=== PATIENT | male | born 1945 | race Caucasian/White ===

== ENCOUNTER 2020-01-09 11:16 | Outpatient (REF) | payer MEDICARE, OTHER, SELFPAY ==
--- NOTE | 2020-01-10 08:45 | MHC.AU.P13 ---
Adult Audiological Evaluation Date of Visit: 01/09/20 Reason for Appointment: Audiologic re-evaluation due to change in hearing. Chris reports he is experiencing sound distortion and ear discomfort/pressure, particularly when increasing the volume of the hearing aids, left ear greater than right. Previous Hearing Test Results: 05/18/2018 at [facility] Moderate to severe sensorineural hearing loss bilaterally with 88% speech understanding for the right ear and 76% for the left ear at a comfortable listening level of 80 dB HL Medical History: Medical History: Since last hearing test has had skin cancer lesions surgically removed with no other treatment required. Chris has a history of occasional balance problems and he reports no change in this symptom and denies any problem with headaches since experiencing the more recent ear discomfort and change in hearing. Hearing Instrument History- Right Ear: Resource Recovery Engineer: Phonak Model: [employer] Q90-P Serial Number: [id number] Battery Size: 13 Hearing Instrument History- Left Ear: Resource Recovery Engineer: Vartopiaak Model: [employer] Q90-P Serial Number: [id number] Battery Size: 13 Otoscopy: Right Ear: Non-occluding cerumen Left Ear: Non-occluding cerumen Tympanometry: Right Ear: Normal Middle Ear System (Type A) Left Ear: Normal Middle Ear System (Type A) Hearing Evaluation: Transducer(s) Used: Insert Earphones Bone Conduction Method: Conventional Audiometry Stimuli Used: Pure Tones Right Ear: Description of Hearing: Moderate to moderately-severe sensorineural hearing loss through all frequencies Left Ear: Description of Hearing: Moderate to moderately-severe sensorineural hearing loss through all frequencies Speech Recognition Threshold (SRT): Method Used: Monitored Live Voice Stimuli Used: Spondee Words Right Ear: 50 Left Ear: 50 Word Discrimination: Method: Recorded Lists Word Lists Used: NU-6 Right Ear: 80% at 75 dB HL Left Ear: 40% at 70 dB HL Chris was unable to tolerate any increase in presentation level above 70 dB HL Most Comfortable Level (MCL): Right Ear: 75 dB HL Left Ear: 70 dB HL Uncomfortable Loudness Level (UCL): Right Ear: Left Ear: 75 dB HL Comparison: Compared to most recent evaluation: Left speech discrimination has significantly decreased Hearing thresholds at 250-2000 Hz have decreased 10-15 dB with improved thresholds at 6000 and 8000 Hz for both ears. Recommendations: Recommendations: Audiological re-evaluation in one year. Referral to Ear, Nose, and Throat is recommended. Recommendations (Other): Due to the significant ear discomfort and decreased left ear speech discrimination, advise further work-up by an Perl Developer/Rental Agent. Hearing aids were re-programmed today to try to improve listening comfort. Diagnosis: Primary Diagnosis: H90.3 Bilateral Sensorineural Hearing Loss Secondary Diagnosis: N/A Services Performed: Services Performed: Comprehensive Audiological Evaluation (CPT 93786) Tympanometry (CPT 83489) Signature: Provider: Francisca Encarnacion, CCC-A
== END 2020-01-09 11:17 | disposition home or self-care (01) ==
LOC: HO.SH 11:16
PROVIDERS: Visit Provider Internal Medicine
DX: H90.3 Sensorineural hearing loss, bilateral (principal)
CPT/HCPCS: 92557; 92567

== ENCOUNTER 2020-01-30 13:12 | Outpatient (REF) | payer SELFPAY | END 2020-01-30 13:13 | disposition home or self-care (01) | LOC: HO.HAP 13:12 | PROVIDERS: PCP Internal Medicine; Referring Provider Internal Medicine; Visit Provider Internal Medicine | DX: Z13.89 Encounter for screening for other disorder (principal) | CPT/HCPCS: 92700 ==

== ENCOUNTER 2020-07-11 09:42 | Outpatient (REF) | payer SELFPAY ==
--- NOTE | 2020-07-11 11:50 | MHC.AU.HAS ---
Hearing Aid Evaluation Date of Visit: Joy Operator Helper Used: Not Applicable Historical Information: Description of Hearing: Bilateral moderate to moderately-severe sensorineural hearing loss Current personal amplification information, if applicable: Binaural Phonak Bolero Q 90-P with canal lock slim tips obtained from ENT Summary: Patient received medical clearance from Dr. Holloway and wants to pursue new hearing aids. Discussed ITC vs JESSICA due to difficulties cleaning the aids. Patient wants to try battery JESSICA with wax guards. Hearing Aid Prescription: Based on the individual?s shared listening needs, communication environments, dexterity, desire for connectivity, and personal preferences, the following prescription for amplification has been made: Right ear: Log Turner: Phonak Model: Audeo P 90 - 13T Battery Size: 13 Color: Silver Light Bridge Mechanic: #3 Medium Type of Mold: Phonak Integrated canal lock Left ear: Left ear prescription to be same as Right Hearing Aid above: Log Turner: Phonak Model: Audeo P 90 - 13T Battery Size: 13 Color: Silver Light Bridge Mechanic: #3 Medium Type of Mold: Phonak Integrated canal lock Accessories/Assistive Technology Recommended: Promo Partner [facility] Plan of Care: Patient wishes to purchase hearing aids as prescribed Action Taken/Action Needed: Earmold Impressions Taken Hearing Fitting to be scheduled when materials arrive Comments: Primary Diagnosis: H90.3 Bilateral Sensorineural Hearing Loss Secondary Diagnosis: Signature: Provider: Francisca Encarnacion, [facility]
== END 2020-07-11 09:43 | disposition home or self-care (01) ==
LOC: HO.HAP 09:42
PROVIDERS: Visit Provider Internal Medicine
DX: Z46.1 Encounter for fitting and adjustment of hearing aid (principal); H90.3 Sensorineural hearing loss, bilateral
CPT/HCPCS: 92591; V5275

== ENCOUNTER 2020-08-11 12:21 | Outpatient (REF) | payer MEDICARE, OTHER, SELFPAY | END 2020-08-11 12:22 | disposition home or self-care (01) | LOC: HO.HAP 12:21 | PROVIDERS: Visit Provider Internal Medicine | DX: H90.3 Sensorineural hearing loss, bilateral (principal); Z46.1 Encounter for fitting and adjustment of hearing aid | CPT/HCPCS: V5261 ==

== ENCOUNTER 2020-08-26 12:09 | Outpatient (REF) | payer SELFPAY | END 2020-08-26 12:10 | disposition home or self-care (01) | LOC: HO.HAP 12:09 | PROVIDERS: Visit Provider Internal Medicine | DX: Z13.89 Encounter for screening for other disorder (principal) ==

== ENCOUNTER 2021-11-16 11:39 | Day surgery (SDC) | payer MEDICARE, OTHER, SELFPAY ==
[2021-11-11 11:15] VITALS: BMI 30.9
--- NOTE | 2021-11-13 13:29 | HO.ANESPROP2 ---
Documented by User: Mildred Martinez NP 11/13/21 13:29 HPI - Anesthesia Eval Consult details Narrative: 75yo Mf for Upper Endoscopy and Colonoscopy [facility] Past Medical History Medical History BPH (benign prostatic hyperplasia) Depression IBS (irritable bowel syndrome) Interstitial lung disease Thrombocytopenia Surgical History Surgical History H/O colonoscopy History of ankle surgery History of prostate surgery Hx of appendectomy Hx of cholecystectomy Hx of hemorrhoidectomy Hx of hernia repair Hx of knee surgery Social History Social History (Updated 11/11/21 @ 11:04 by Kenzie Keene RN) Are you a primary childcare center administrator to a significant other at home: No Patient Tobacco Use Status: Former Tobacco user Quit Date: >10 yr ago Tobacco use type: Cigarette Use of substances other than those prescribed or required for medical reasons: No Have you been hit, kicked, punched, or otherwise hurt by someone within the past year? If so, by whom?: No Are you DNR?: No Advance Directives: No Advance Directives Information Provided: Yes (brochure mailed) Advance Directives on File: No Recently lost weight without trying: No Eating poorly because of decreased appetite: No Nutrition Risks: Surgical patient >75years Meds Allergies Allergy/AdvReac Type Severity Reaction Status Date / Time meperidine [From DEMEROL] Allergy Severe ANAPHYLAXIS Verified 11/16/21 11:56 nickel Allergy Unknown Unknown Verified 11/16/21 11:56 Home Medications Medication Instructions Recorded Confirmed Last Taken Type Bifidobacterium infantis 4 mg 4 mg PO DAILY 11/11/21 11/11/21 Unknown History capsule (Align) cyanocobalamin (vitamin B-12) 1,000 mcg PO DAILY 11/11/21 11/11/21 Unknown History 1,000 mcg tablet (Vitamin B-12) finasteride 5 mg tablet 5 mg PO DAILY 11/11/21 11/11/21 11/16/21 09:30 History fluoxetine 40 mg capsule 40 mg PO DAILY 11/11/21 11/11/21 11/16/21 09:30 History multivitamin 1 tab PO DAILY 11/11/21 11/11/21 Unknown History tadalafil 5 mg tablet 5 mg PO DAILY 11/11/21 11/11/21 Unknown History polyethylene glycol 3350 17 gram g 11/16/21 11/16/21 Unknown History oral powder packet (Miralax) Exam Exam Date and Time: November 13, 2021 1329 Height,Weight and Vital Signs: Height 6 ft 0.75 in Weight 105.687 kg Assessment and Plan Assessment Anesthesia Assessment: Chart Reviewed Documented by User: Braydon Bedoya MD 11/16/21 12:53 PMF Active Problems Active Problems: acid reflux Past Medical History Medical History BPH (benign prostatic hyperplasia) Depression IBS (irritable bowel syndrome) Interstitial lung disease Thrombocytopenia Family History Family history of problems with anesthesia: No Surgical History Surgical History H/O colonoscopy History of ankle surgery History of prostate surgery Hx of appendectomy Hx of cholecystectomy Hx of hemorrhoidectomy Hx of hernia repair Hx of knee surgery History of Problems with Anesthesia: No Social History Social History (Updated 11/11/21 @ 11:04 by Kenzie Keene RN) Are you a primary childcare center administrator to a significant other at home: No Patient Tobacco Use Status: Former Tobacco user Quit Date: >10 yr ago Tobacco use type: Cigarette Use of substances other than those prescribed or required for medical reasons: No Have you been hit, kicked, punched, or otherwise hurt by someone within the past year? If so, by whom?: No Are you DNR?: No Advance Directives: No Advance Directives Information Provided: Yes (brochure mailed) Advance Directives on File: No Recently lost weight without trying: No Eating poorly because of decreased appetite: No Nutrition Risks: Surgical patient >75years Meds Allergies Allergy/AdvReac Type Severity Reaction Status Date / Time meperidine [From DEMEROL] Allergy Severe ANAPHYLAXIS Verified 11/16/21 11:56 nickel Allergy Unknown Unknown Verified 11/16/21 11:56 Home Medications Medication Instructions Recorded Confirmed Last Taken Type Bifidobacterium infantis 4 mg 4 mg PO DAILY 11/11/21 11/11/21 Unknown History capsule (Align) cyanocobalamin (vitamin B-12) 1,000 mcg PO DAILY 11/11/21 11/11/21 Unknown History 1,000 mcg tablet (Vitamin B-12) finasteride 5 mg tablet 5 mg PO DAILY 11/11/21 11/11/21 11/16/21 09:30 History fluoxetine 40 mg capsule 40 mg PO DAILY 11/11/21 11/11/21 11/16/21 09:30 History multivitamin 1 tab PO DAILY 11/11/21 11/11/21 Unknown History tadalafil 5 mg tablet 5 mg PO DAILY 11/11/21 11/11/21 Unknown History polyethylene glycol 3350 17 gram g 11/16/21 11/16/21 Unknown History oral powder packet (Miralax) Exam Airway Mallampati Class: III TM Dist: >3cm Neck ROM: Full Heart: rrr Lungs: clear Assessment and Plan Final Anesthetic Review Family History of Problems with Anesthesia: No History of Problems with Anesthesia: No NPO: Yes ASA Class: II Final Preanesthetic Review: No Changes in Pt Med Stat, Meds/Allgs Chart Reviewed, Consent Obtained/Reviewed and Anes Risks/Benef Reviewed Patient Risk: Intermediate Procedure Risk: Low Anesthetic Plan Anesthetic Plan: MAC: Disposition: Standard PACU
[2021-11-16 12:12] VITALS: BP 157/72; PULSE 76; RESP 18; TEMP 37.1; O2SAT 96
[2021-11-16 13:59] VITALS: BP 130/57; PULSE 69; RESP 18; TEMP 36.8; O2SAT 97
--- NOTE | 2021-11-16 14:03 | P.BOP_ITS ---
Brief Operative Note Date of Service: 11/16/21 Pre-op diagnosis: GERD, Screening Post-op diagnosis: other (Hiatal hernia, Gastric polyps, Erosive duodenitis, Diverticulosis, Internal hemorrhoids) Procedure: EGD with biopsies. Colonoscopy to the cecum and TI Surgeon: Peter Simmons Anesthesia: MAC Was an Dye Automation Operator used for this Procedure?: No Estimated blood loss (mL): 2.0 Pathology: other (A. Gastric antrum B. Gastric polyps C. EG Junction at 35cm) Condition: stable Disposition: PACU
[2021-11-16 14:14] VITALS: BP 162/82; PULSE 65; RESP 18; TEMP 36.3; O2SAT 98
--- NOTE | 2021-11-16 22:20 | OP_ITS ---
SURGEON: Peter Simmons MD INDICATIONS: The patient presents for evaluation of gastroesophageal reflux and colorectal cancer screening. Full consent has been obtained from him for this, including risks of bleeding and perforation. PREOPERATIVE DIAGNOSIS: Gastroesophageal reflux, colorectal cancer screening. POSTOPERATIVE DIAGNOSIS: PROCEDURE PERFORMED: Esophagogastroduodenoscopy with biopsies, and colonoscopy to the cecum and terminal ileum. ESTIMATED BLOOD LOSS: COMPLICATIONS: ANESTHESIA: Monitored anesthesia care. ASSISTANTS: SPECIMENS: POSTOPERATIVE DIAGNOSES: Gastroesophageal reflux, colorectal cancer screening, hiatal hernia, gastric polyps, erosive duodenitis, diverticulosis, and internal hemorrhoids. DESCRIPTION OF PROCEDURE: The patient was placed in the left lateral decubitus position the Olympus video gastroscope was passed in the posterior oropharynx and upper esophagus under direct vision. The scope was passed slowly into the distal esophagus. The gastroesophageal junction appeared at 35 cm. There was some slight irregularity and edema, but no esophagitis nor Manrique mucosa. The scope entered into the stomach. There was a small hiatal hernia. The scope was advanced to the pylorus and the duodenum was cannulated to the descending portion. The duodenal bulb had changes consistent with an erosive duodenitis, but no ulceration nor mass. The 2nd and 3rd portions of the duodenum appeared normal. The scope was withdrawn back into the stomach. The gastric antrum and body appeared normal other than some erythema. Biopsies were obtained from the gastric antrum. Both in the forward viewing and retroflexed position, I was able to visualize multiple hyperplastic appearing gastric polyps, but there was no sign of any mass or ulceration. The scope was straightened. Biopsies were obtained from some of the polyps. The scope was withdrawn back in the esophagus. Biopsies were obtained at the EG junction at 35 cm. Proximal to that, the esophageal mucosa appeared normal. The scope was withdrawn from the patient. He was turned around for the colonoscopy. The digital rectal exam revealed no abnormalities. The Olympus video pediatric colonoscope was entered into the rectum and advanced to the cecum with the assistance of abdominal wall pressure. Once in the cecum, I did identify a normal-appearing cecal pouch with appendiceal orifice and a normal-appearing ileocecal valve. The terminal ileum was cannulated and appeared normal. Scope was withdrawn back in the colon. The entire cecum and ileocecal valve appeared normal. The scope was slowly withdrawn assessing all mucosal surfaces carefully. Preparation was excellent. I did not visualize any sign of polyps, colitis, nor angiodysplasia. There was a mild amount of sigmoid diverticulosis. In the rectum, the scope was retroflexed visualizing internal hemorrhoids, but no other pathology. The rectal mucosa appeared normal. The scope was straightened and withdrawn from the patient. He tolerated both procedures well and was returned to the recovery area in stable condition. IMPRESSION: 1. Erosive duodenitis. 2. Gastric polyps. 3. Hiatal hernia, gastroesophageal reflux. 4. Diverticulosis. 5. Internal hemorrhoids. PLAN: The results of biopsies will be checked. Given these findings and his ongoing symptoms of heartburn, I shall start him on omeprazole 20 mg per day. He was advised not to use any aspirin nor NSAIDs for least 1 week. Given today's negative colonoscopy, I do not think he would need any further screening colonoscopies. He was advised to see me in several months for a followup visit as well. MD GABRIELA Torres/TAZ / [phone]
== END 2021-11-16 14:51 | disposition home or self-care (01) ==
PROVIDERS: PCP Internal Medicine; Visit Provider Internal Medicine
PROC: (CPT 43239; principal; 2021-11-16 12:50)
DX: Z12.11 Encounter for screening for malignant neoplasm of colon (principal); K57.30 Diverticulosis of large intestine without perforation or abscess without bleeding; K64.8 Other hemorrhoids; K21.9 Gastro-esophageal reflux disease without esophagitis; K31.7 Polyp of stomach and duodenum; K29.80 Duodenitis without bleeding; K44.9 Diaphragmatic hernia without obstruction or gangrene; K58.9 Irritable bowel syndrome, unspecified; N40.0 Benign prostatic hyperplasia without lower urinary tract symptoms; J84.9 Interstitial pulmonary disease, unspecified; F32.A Depression, unspecified; Z79.899 Other long term (current) drug therapy; Z88.8 Allergy status to other drugs, medicaments and biological substances; Z87.891 Personal history of nicotine dependence; Z90.49 Acquired absence of other specified parts of digestive tract; Z98.890 Other specified postprocedural states
CPT/HCPCS: 43239; G0121; 88305; 88342

== ENCOUNTER 2021-12-23 15:42 | Outpatient (REF) | payer SELFPAY ==
--- NOTE | 2021-12-24 14:19 | MHC.AU.FUR ---
Hearing Instrument Follow-Up Date of Visit: 12/24/21 Right Ear: Doggy Daycare Activities Director: Phonak Model: Audeo P 90 - 13T Serial Number: [id number] Repair Warranty: 10/21/2023 Loss and Damage Warranty: Battery Size: 13 Color: Silver Light Critical Care Unit Nurse: #3 Medium Type of Mold: Phonak Integrated canal lock #[id number] Warranty 11/20/2020 Type of Wax Guard: CeruStop Dispensed By: [facility] Date of Fittin08/11/2020 Follow-Up Summary: Right aid with canal lock c-shell dropped doff 12/23/2021. Wax guard ring came off the c-shell. Cleaned aid, automation qa analyst, microphones and aid is amplifying well. Called Phonbillie flynn will do a No Charge courtesy repair to replace the wax guard ring. Contacted patient to tell him the c-shell will be sent for the N/C repair. Patient reports he feels his hearing has changed. Advised him to contact his PCP to have an order for a hearing test faxed. Recommendations (Other): CALL PATIENT WHEN NO CHARGE COURTESY REPAIRED C-SHELL RECEIVED. HEARING AID CASE IN REPAIR DRAWER. Signature: Provider: Betzy Encarnacion, ROSEMARY-A
== END 2021-12-23 15:43 | disposition home or self-care (01) ==
LOC: HO.HAP 15:42
PROVIDERS: Visit Provider Internal Medicine
DX: Z13.89 Encounter for screening for other disorder (principal)

== ENCOUNTER 2022-01-06 15:00 | Outpatient (REF) | payer SELFPAY | END 2022-01-06 15:01 | disposition home or self-care (01) | LOC: HO.HAP 15:00 | PROVIDERS: Visit Provider Internal Medicine | DX: Z13.89 Encounter for screening for other disorder (principal) ==

== ENCOUNTER 2022-02-03 10:04 | Outpatient (REF) | payer MEDICARE, OTHER, SELFPAY | END 2022-02-03 10:05 | disposition home or self-care (01) | LOC: HO.SH 10:04 | PROVIDERS: Visit Provider Nurse Practitioner Family | DX: Z01.118 Encounter for examination of ears and hearing with other abnormal findings (principal); H90.3 Sensorineural hearing loss, bilateral | CPT/HCPCS: 92557; 92567 ==

== ENCOUNTER 2024-06-12 14:53 | Outpatient (REF) | payer SELFPAY | END 2024-06-12 14:54 | disposition home or self-care (01) | LOC: HO.HAP 14:53 | PROVIDERS: Visit Provider Internal Medicine | DX: Z13.89 Encounter for screening for other disorder (principal) ==

== ENCOUNTER 2024-06-26 14:13 | Outpatient (REF) | payer SELFPAY ==
--- OUTSIDE RECORDS SUMMARY | 2024-06-26 17:01 | XMS_ITS ---
Author Organization [facility] Address [address] [place] [address] Care Team Providers Care Diagnostic Imaging Manager Name Role Phone Celso Sr MD Primary Care Provider Peter Correa [phone] REASON FOR VISIT refill script Medications Medication SIG (Take, Route, Fr equency, Duration) Notes Start Date End Date Status Omeprazole 20 mg TAKE 1 CAPSULE BY MO UTH EVERY MORNING Orally Once a day for 30 days Active Encounters Encounter Location Date Provider Diagnosis [facility] [address] [place] [phone] 07/08/2023 Peter Simmons Plan Of Treatment Medication Medication Name Sig Start Date Stop Date Notes Omeprazole 20 mg TAKE 1 CAPSULE BY MO UTH EVERY MORNING Orally Once a day for 30 days Progress Notes * KRISTA SANTOS DDOB:[birth year] (77 yo M)Acc No.[id number]:07/08/2023 Patient:?KRISTA SANTOS :1945???Age:77 Y???Sex:Male Address:[facility], [place] [address] * Refills? Refill Omeprazole Capsule Delayed Release, 20 mg, Orally, 30, TAKE 1 CAPSULE BY MOUTH EVERY MORNING, Once a day, 30 days, Refills=11 * true * Date:? Generated for Eric bangura/Luc/eTransmitting on:?06/26/2024 05:00 PM EDT
--- OUTSIDE RECORDS SUMMARY | 2024-06-26 17:01 | XMS_ITS | Patient Health Record ---
Author Organization [facility] Address [address] [place] [phone] Care Team Providers Care Furniture Finisher Helper Name Role Phone Celso Sr MD Primary Care Provider Peter Correa Unavailable [phone] Allergies Allergen (clinical drug ingredient) Drug/Non Drug Allergy documented on EMR Reaction Allergy Type Onset Date Status nickel brianda (uncoded) Unknown Allergy Act nery meperidine Demerol (uncoded) Unknown Allergy A ctive Reason For Referral No Information Medications Medication SIG (Take, Route, Frequency, Duration) Notes Start Date End Date Status Align 4 MG as directed Orally Active Omeprazole 20 mg TAKE 1 CAPSULE BY MO UT EVERY MORNING Orally Once a day for 30 days Active Vitamin B12 1000 MCG 1 tablet Orally Onc e a day Active Multi Vitamin/Minerals - as directed Ora lly once a day Active Tadalafil 5 MG 1 tablet as needed Orally Once a day for 30 day(s) Active Finasteride 5 MG 1 tablet Orally Once a day Active Fluoxetine 40 1 capsule orally onc e a day Active MiraLax Active tylenol Not-Taking Ciclopirox 8 % apply ONCE A DAY TO nails ON LEFT foot REMOVE ONCE A WEEK WITH rubbing alcohol REPEAT UNTIL resolved] External for 30 Active Immunizations Vaccine Route Administration Date Status Comme nts Influenza Unknown 01/19/2018 Administered Influenza Unknown 11/26/2018 Administered Influenza Unknown 11/26/2020 Administered Influenza Unknown 11/26/2021 Administered Social History Tobacco Use: Social History Observation Description Date Details (start date - stop date) Former Smoker NA - NA Tobacco Use/Smoking Question Answer Notes Patient is a former smoker How long has it been since you last smoked? > 10 years Alcohol Screen Question Answer Notes Did you have a drink containing alcohol in the p ast year? No Points 0 Interpretation Negative Section Notes: He does not smoke or use any significant amounts of alcohol He does not smoke or use any significant amounts of alcohol He does not smoke or use any significant amounts of alcohol He does not smoke or use any significant amounts of alcohol He does not smoke or use any significant amounts of alcohol Problems Problem Type SNOMED Code ICD Code Onset Dates Problem Status W/U Status Risk Notes Problem Esophageal reflux (017475351) Esophageal reflux (K21.9) Active confirmed Problem Gastro-esophageal reflux disease without esophagitis (325879697) Gastro-esophageal reflux disease without esophagitis (K21.9) Active confirmed Problem Screening for malignant neoplasm of colon (046487488) Encounter for screening for malignant neoplasm of colon (Z12.11) Active confirmed Problem Duodenitis (29873684) Duodenitis (K29.80) Active confirmed Problem Gastric polyp (64920311) Gastric polyp (K31.7) Active confirmed Problem 39429652 Constipation, unspecified constipation type (K59.00) Active confirmed Problem Gastroesophageal reflux disease (359016152) GERD (gastroesophageal reflux disease) (K21.9) Active confirmed Problem 85327052 Diarrhea, unspecified type (R19.7) Active confirmed Problem 98301360 Irritable bowel syndrome, unspecified type (K58.9) Active confirmed Problem 61675110 Abdominal discomfort (R10.9) Active confirmed Problem Diverticulosis of colon (572040445) Diverticulosis of colon (K57.30) Active confirmed Encounters Encounter Location Date Provider Diagnosis [facility] [address] [facility] [address] [place] [phone] 07/08/2023 Peter Simmons Plan Of Treatment Pending Test Test Name Order Date STOOL WBC 03/01/2019 Future Test Test Name Order Date COLONOSCOPY 06/01/2011 UPPER GI ENDOSCOPY 10/20/2021 COLONOSCOPY 10/20/2021 UPPER GI ENDOSCOPY 11/03/2021 Insurance Providers Payer Name Payer Address Payer Phone Subscriber Number Group Number Insured Name Patient Relationship to Insured Coverage Start Date Coverage End Date MEDICARE OF [place] [address] [place] [address] [id number] KRISTA SANTOS Self - patient is the insured [facility] [address] [place] [address] [id number] KRISTA SANTOS Self - patient is the insured Medical (General) History Medical History History ICD Code Depression BPH Denies ND,DM,CVA,renal disease Interstitial lung disease--sees Dr. Sutherland ov Neg. colonoscopy in 2001 wit h me and a negative colonoscopy in 07/[address] 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 Azar hernia surgery arterial embolization for a nosebleed leg/ankle surgery- left
== END 2024-06-26 14:14 | disposition home or self-care (01) ==
LOC: HO.HAP 14:13
PROVIDERS: Visit Provider Internal Medicine
DX: Z46.1 Encounter for fitting and adjustment of hearing aid (principal); H90.3 Sensorineural hearing loss, bilateral
CPT/HCPCS: V5264

== ENCOUNTER 2024-08-07 15:02 | Outpatient (REF) | payer SELFPAY ==
--- OUTSIDE RECORDS SUMMARY | 2024-08-07 16:04 | XMS_ITS ---
Author Organization [facility] Address [address] [place] [address] Care Team Providers Care Hotel Reservationist Name Role Phone Celso Sr MD Primary Care Provider Peter Correa [phone] REASON FOR VISIT refill script Medications Medication SIG (Take, Route, Fr equency, Duration) Notes Start Date End Date Status Omeprazole 20 mg TAKE 1 CAPSULE BY MO UTH EVERY MORNING Orally Once a day for 30 days Active Encounters Encounter Location Date Provider Diagnosis [facility] [address] [place] [phone] 07/08/2023 Peter Simmons Plan Of Treatment Medication Medication Name Sig Start Date Stop Date Notes Omeprazole 20 mg TAKE 1 CAPSULE BY MO UTH EVERY MORNING Orally Once a day for 30 days Progress Notes * KRISTA SANTOS DDOB:[birth year] (77 yo M)Acc No.[id number]:07/08/2023 Patient:?KRISTA SANTOS :1945???Age:77 Y???Sex:Male Address:[facility], [place] [address] * Refills? Refill Omeprazole Capsule Delayed Release, 20 mg, Orally, 30, TAKE 1 CAPSULE BY MOUTH EVERY MORNING, Once a day, 30 days, Refills=11 * true * Date:? Generated for Eric bangura/Luc/eTransmitting on:?08/07/2024 04:04 PM EDT
--- OUTSIDE RECORDS SUMMARY | 2024-08-07 16:04 | XMS_ITS | Patient Health Record ---
Author Organization [facility] Address [address] [place] [phone] Care Team Providers Care Potato Chip Frier Name Role Phone Celso Sr MD Primary Care Provider Peter Correa Unavailable [phone] Allergies Allergen (clinical drug ingredient) Drug/Non Drug Allergy documented on EMR Reaction Allergy Type Onset Date Status nickel brianda (uncoded) Unknown Allergy Act nery meperidine Demerol (uncoded) Unknown Allergy A ctive Reason For Referral No Information Medications Medication SIG (Take, Route, Frequency, Duration) Notes Start Date End Date Status Align 4 MG as directed Orally Active Vitamin B12 1000 MCG 1 tablet Orally Onc e a day Active Multi Vitamin/Minerals - as directed Ora lly once a day Active Tadalafil 5 MG 1 tablet as needed Orally Once a day for 30 day(s) Active Finasteride 5 MG 1 tablet Orally Once a day Active Fluoxetine 40 1 capsule orally onc e a day Active MiraLax Active tylenol Not-Taking Omeprazole 20 mg TAKE [address] CAPSU[address] [facility] EVERY MORNING for 30 Active Ciclopirox 8 % apply ONCE A DAY [...] W/U Status Risk Notes Problem Esophageal reflux (841553504) Esophageal reflux (K21.9) Active confirmed Problem Gastro-esophageal reflux disease without esophagitis (317335086) Gastro-esophageal reflux disease without esophagitis (K21.9) Active confirmed Problem Screening for malignant neoplasm of colon (243005721) Encounter for screening for malignant neoplasm of colon (Z12.11) Active confirmed Problem Duodenitis (03627524) Duodenitis (K29.80) Active confirmed Problem Gastric polyp (18136718) Gastric polyp (K31.7) Active confirmed Problem 00587341 Constipation, unspecified constipation type (K59.00) Active confirmed Problem Gastroesophageal reflux disease (745798076) GERD (gastroesophageal reflux disease) (K21.9) Active confirmed Problem 27807795 Diarrhea, unspecified type (R19.7) Active confirmed Problem 35374684 Irritable bowel syndrome, unspecified type (K58.9) Active confirmed Problem 59075936 Abdominal discomfort (R10.9) Active confirmed Problem Diverticulosis of colon (512768324) Diverticulosis of colon (K57.30) Active confirmed Plan Of Treatment Pending Test Test Name Order Date STOOL WBC 03/01/2019 Future Test Test Name Order Date COLONOSCOPY 06/01/2011 UPPER GI ENDOSCOPY 10/20/2021 COLONOSCOPY 10/20/2021 UPPER GI ENDOSCOPY 11/03/2021 Insurance Providers Payer Name Payer Address Payer Phone Subscriber Number Group Number Insured Name Patient Relationship to Insured Coverage Start Date Coverage End Date MEDICARE OF [place] [address] [place] [address] [id number] KRISTA SANTOS Self - patient is the insured [facility] [address] [place] [address] [id number] KRISTA SANTOS Self - patient is the insured Medical (General) History Medical History History ICD Code Depression BPH Denies [place],DM,CVA,renal disease Interstitial lung disease--sees Dr. Sutherland ov Neg. colonoscopy in 2001 wit h me and a negative colonoscopy in 07/[address] Azar at [facility] IBS with some constipation Negative colonoscopy [...]
--- NOTE | 2024-08-08 09:59 | MHC.AU.HA3 ---
Hearing Instrument Follow-Up- Binaural Date of Visit: 08/08/24 Right Ear: Make, Model, Color, Serial Number: [id number] Office Helper Repair Warranty: 10/21/2023 Office Helper Loss and Damage Warranty: [facility] Service Plan: Battery Size: 13 Petroleum Laboratory Technician/Slim Tube: #3 Medium Earmold/Dome/CShell/SlimTip:Phonak Integrated canal lock #[id number] Warranty 11/20/2020 Type of Wax Guard: CeruStop Dispensed By: [facility] Date of Fittin08/11/2020 Left Ear: Make, Model, Color, Serial Number: [id number] Office Helper Repair Warranty: 10/21/2023 Office Helper Loss and Damage Warranty: [facility] Service Plan: Battery Size: 13 Petroleum Laboratory Technician/Slim Tube: #3 Medium Earmold/Dome/CShell/SlimTip: Phonak Integrated canal lock #[id number] Warranty 10/15/2024 Warranty 11/20/2020 Type of Wax Guard: CeruStop Dispensed By: [facility] Date of Fittin08/11/2020 Follow-Up Summary: Right aid d/o 08/07 . Found to be extremely weak. C-shell missing was guard. Cleaned aid, cleaned earmold, ran through dehumidifier, vacuumed c-shell. No improvement. 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 Advised Chris of need for new c-shell. Chris agrees. Quoted $155 as that is what he paid for a new left c-shell in May of this year. Right KURTZ is in repair drawer to be coupled with new c-shell. Sending the current c-shell to [employer] with order to ensure good fit of new c-shell. Recommendations: Recommendations: Patient will be contacted when materials have arrived. 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 Diagnosis Code(s): Primary Diagnosis: H90.3 Bilateral Sensorineural Hearing Loss Signature: Provider: Deirdre Bai, [facility]
== END 2024-08-07 15:03 | disposition home or self-care (01) ==
LOC: HO.HAP 15:02
PROVIDERS: Visit Provider Internal Medicine
DX: Z13.89 Encounter for screening for other disorder (principal)

== ENCOUNTER 2024-08-27 11:44 | Outpatient (REF) | payer SELFPAY ==
--- OUTSIDE RECORDS SUMMARY | 2024-08-27 12:59 | XMS_ITS | Patient Health Record ---
Author Organization [facility] Address [address] [place] [address] Care Team Providers Care Gaming Cage Cashier Name Role Phone Celso Sr MD Primary Care Provider Peter Correa Unavailable [phone] Allergies Allergen (clinical drug ingredient) Drug/Non Drug [...] Omeprazole 20 mg TAKE 1 CAPSULE BY [facility] EVERY MORNING for 30 Active Ciclopirox 8 [...] W/U Status Risk Notes Problem Esophageal reflux (273747064) Esophageal reflux (K21.9) Active confirmed Problem Gastro-esophageal reflux disease without esophagitis (466548269) Gastro-esophageal reflux disease without esophagitis (K21.9) Active confirmed Problem Screening for malignant neoplasm of colon (263558501) Encounter for screening for malignant neoplasm of colon (Z12.11) Active confirmed Problem Duodenitis (88884559) Duodenitis (K29.80) Active confirmed Problem Gastric polyp (76709551) Gastric polyp (K31.7) Active confirmed Problem 40027067 Constipation, unspecified constipation type (K59.00) Active confirmed Problem Gastroesophageal reflux disease (779841329) GERD (gastroesophageal reflux disease) (K21.9) Active confirmed Problem 60135244 Diarrhea, unspecified type (R19.7) Active confirmed Problem 39451216 Irritable bowel syndrome, unspecified type (K58.9) Active confirmed Problem 55649453 Abdominal discomfort (R10.9) Active confirmed Problem Diverticulosis of colon (343900642) Diverticulosis of colon (K57.30) Active confirmed Plan [...] Date MEDICARE OF [place] [address] [place] [address] [id number] KRISTA SANTOS Self - patient is the insured [facility] INDEMNITY [address] [place] [address] [id number] KRISTA SANTOS Self - patient is the insured Medical (General) History Medical History History ICD Code Depression BPH Denies [place],DM,CVA,renal disease Interstitial lung disease--sees Dr. Sutherland ov Neg. colonoscopy in 2001 wit h me and a negative colonoscopy in 07/[address] Azar at [facility] IBS with some constipation Negative colonoscopy [...]
== END 2024-08-27 11:45 | disposition home or self-care (01) ==
LOC: HO.HAP 11:44
PROVIDERS: Visit Provider Internal Medicine
DX: Z46.1 Encounter for fitting and adjustment of hearing aid (principal); H90.3 Sensorineural hearing loss, bilateral
CPT/HCPCS: V5264

== ENCOUNTER 2024-10-01 12:29 | Outpatient (REF) | payer SELFPAY ==
--- OUTSIDE RECORDS SUMMARY | 2024-10-01 13:06 | XMS_ITS | Patient Health Record ---
Author Organization [facility] Address [address] [place] [address] Care Team Providers Care Music Box Mechanic Name Role Phone Celso Sr MD Primary Care Provider Peter Correa Unavailable [phone] Allergies Allergen (clinical drug ingredient) Drug/Non Drug [...] 20 mg TAKE 1 CAPSULE BY [facility] EVERY MORNING for 30 Active Ciclopirox 8 [...] W/U Status Risk Notes Problem Esophageal reflux (521984297) Esophageal reflux (K21.9) Active confirmed Problem Gastro-esophageal reflux disease without esophagitis (463534693) Gastro-esophageal reflux disease without esophagitis (K21.9) Active confirmed Problem Screening for malignant neoplasm of colon (532322530) Encounter for screening for malignant neoplasm of colon (Z12.11) Active confirmed Problem Duodenitis (01798849) Duodenitis (K29.80) Active confirmed Problem Gastric polyp (22865331) Gastric polyp (K31.7) Active confirmed Problem 01889808 Constipation, unspecified constipation type (K59.00) Active confirmed Problem Gastroesophageal reflux disease (492111922) GERD (gastroesophageal reflux disease) (K21.9) Active confirmed Problem 24269717 Diarrhea, unspecified type (R19.7) Active confirmed Problem 64638330 Irritable bowel syndrome, unspecified type (K58.9) Active confirmed Problem 23306841 Abdominal discomfort (R10.9) Active confirmed Problem Diverticulosis of colon (793068271) Diverticulosis of colon (K57.30) Active confirmed Plan [...] Date MED[place]ARE OF [place] [address] [place] [address] [id number] KRISTA SANTOS Self - patient is the insured [facility] INDEMNITY [address] [place] [address] [id number] KRISTA SANTOS Self - patient is the insured Medical (General) History Medical History History ICD Code Depression BPH Denies [place],DM,CVA,renal disease Interstitial lung disease--sees Dr. Sutherland ov [...]
--- NOTE | 2024-10-01 14:11 | MHC.AU.HA3 ---
Hearing Instrument Follow-Up- Binaural Date of Visit: 10/01/24 Visual Design Lead Used: Right Ear: Gm, Model, Color, Serial Number: [id number] Inventory Worker Repair Warranty: 10/21/2023 Inventory Worker Loss and Damage Warranty: 10/21/2023 [facility] Service Plan: 10/21/2023 Battery Size: 13 Bail Agent/Slim Tube: #3 Medium Earmold/Dome/CShell/SlimTip:Phonak Integrated canal lock [id number] war exp 12/18/2024 #[id number] Warranty 10/15/2024 Type of Wax Guard: CeruStop Dispensed By: [facility] Date of Fittin08/11/2020 Left Ear: Gm, Model, Color, Serial Number: [id number] Inventory Worker Repair Warranty: 10/21/2023 Inventory Worker Loss and Damage Warranty: 10/21/2023 [facility] Service Plan: 10/21/2023 Battery Size: 13 Bail Agent/Slim Tube: #3 Medium Earmold/Dome/CShell/SlimTip: Phonak Integrated canal lock #[id number] Warranty 10/15/2024 Type of Wax Guard: CeruStop Dispensed By: [facility] Date of Fittin08/11/2020 Follow-Up Summary: Right aid d/o c/o not working. Found wax guard missing, refrigerator tester port completely occluded with wax. Cleaned aid, cleaned c-shell, vacuumed out refrigerator tester port, replaced wax guard. Listening check positive. Recommendations: Recommendations: Hearing instrument follow-up or maintenance as needed. Diagnosis Code(s): Primary Diagnosis: H90.3 Bilateral Sensorineural Hearing Loss Signature: Provider: Deirdre Bai, [facility]
== END 2024-10-01 12:30 | disposition home or self-care (01) ==
LOC: HO.HAP 12:29
PROVIDERS: Visit Provider Internal Medicine
DX: Z13.89 Encounter for screening for other disorder (principal)

== ENCOUNTER 2024-10-12 11:25 | Outpatient (REF) | payer SELFPAY ==
--- OUTSIDE RECORDS SUMMARY | 2024-10-12 11:50 | XMS_ITS | Patient Health Record ---
Author Organization [facility] Address [address] [place] [address] Care Team Providers Care Button Tacker Name Role Phone Celso Sr MD Primary Care Provider Peter Correa Unavailable [phone] Allergies Allergen (clinical drug ingredient) Drug/Non Drug [...] 20 mg TAKE 1 CAPSULE BY [facility] EVERY MORNING for 30 Active Ciclopirox 8 [...] W/U Status Risk Notes Problem Esophageal reflux (518918357) Esophageal reflux (K21.9) Active confirmed Problem Gastro-esophageal reflux disease without esophagitis (446865591) Gastro-esophageal reflux disease without esophagitis (K21.9) Active confirmed Problem Screening for malignant neoplasm of colon (261157015) Encounter for screening for malignant neoplasm of colon (Z12.11) Active confirmed Problem Duodenitis (28970868) Duodenitis (K29.80) Active confirmed Problem Gastric polyp (64753396) Gastric polyp (K31.7) Active confirmed Problem 82926561 Constipation, unspecified constipation type (K59.00) Active confirmed Problem Gastroesophageal reflux disease (835696646) GERD (gastroesophageal reflux disease) (K21.9) Active confirmed Problem 04023043 Diarrhea, unspecified type (R19.7) Active confirmed Problem 51656170 Irritable bowel syndrome, unspecified type (K58.9) Active confirmed Problem 00005290 Abdominal discomfort (R10.9) Active confirmed Problem Diverticulosis of colon (309300935) Diverticulosis of colon (K57.30) Active confirmed Plan [...] OF [place] [address] [place] [address] [id number] KRISTA SANTOS Self - patient is the insured [facility] INDEMNITY [address] [place] [address] [id number] KRISTA SANTOS Self - patient is the insured Medical (General) History Medical History History ICD Code Depression BPH Denies [place],DM,CVA,renal disease Interstitial lung disease--sees Dr. Sutherland ov Neg. colonoscopy in 2001 wit h me and a negative colonoscopy in 07/[address] Azar at [facility] IBS with some constipation Negative colonoscopy [...]
--- OUTSIDE RECORDS SUMMARY | 2024-10-12 11:50 | XMS_ITS | Clinical Summary ---
Author Organization [facility] Address [address] [facility] [address] [place] [address] Phone Care Team Providers Care Lead Recoverer Name Role Phone Celso Sr MD Unavailable [phone] Celso Sr MD Primary Care Provider [phone] Celso Sr MD Unavailable [phone] Allergies Active Allergy Reactions Criticality Noted Date Comments Meperidine Anaphylaxis High 03/10/2017 Other reaction(s): anaphylaxis Nickel GI Upset 2021 Other 11/17/2017 nickel Medications Bifidobacterium infantis 4 mg Cap Take 4 mg by mouth every morning. Align and activia daily Active finasteride (PROSCAR) 5 mg tablet Take 5 mg by mouth every morning. Active FLUoxetine (PROZAC) 40 MG capsule Take 40 mg by mouth every other day. Every other day Active cyanocobalamin, vitamin B-12, 1000 MCG tablet Take 1,000 mcg by mouth every morning. 6 Active CIALIS 5 mg tablet Take 5 mg by mouth daily. 3 8 Active multivitamins-min erals-folic hqld-wsabqax-vnid in (COMPLETE SENIOR) 0.4-300-250 mg-mcg-mcg Tab Take 1 tablet by mouth daily. Active omeprazole (PRILOSEC) 20 MG capsuleIndication s:Gastroesophagea l reflux disease, unspecified whether esophagitis present Take 1 capsule (20 mg total) by mouth daily. 30 capsule 1 2 Active electrolytes/dext toby (PEDIALYTE ADVANCED CARE ORAL)Indications: packet powder form Take 1 packet by mouth every 14 (fourteen) days. Indications: packet powder form Active Medication-Free Text Take 1 Bottle by mouth once a week. Up to twice a week. [place] Protein 30 grams of protein Protein Plus Banana Honey [place] Butter Active polyethylene glycol (MIRALAX) 17 gram/dose powderIndications :Irritable bowel syndrome with both constipation and diarrhea,Constipa tion, unspecified constipation type Take 17 g by mouth 2 (two) times a day. Mix with 8oz of water or beverage 3060 g 4 4 Active rivaroxaban (XARELTO) 20 mg Tab Take 1 tablet (20 mg total) by mouth daily with dinner. 90 tablet 3 4 Active rosuvastatin (CRESTOR) 20 MG tablet Take 1 tablet (20 mg total) by mouth daily. 90 tablet 3 4 Active metoprolol succinate (TOPROL-XL) 25 MG 24 hr tablet Take 1 tablet (25 mg total) by mouth daily. 90 tablet 3 4 Active ALPRAZolam (XANAX) 0.5 MG tablet 4 Active Active Problems Problem Noted Date Diagnosed Date Paroxysmal atrial fibrillation 12/06/2023 Palpitations 10/07/2023 Overview (12/12/2023): Had a 14 day monitor done- 10/23-11/07/23, showed afib/ SVT and a 5 beat run of VT. Following with Dr. Meng, who saw him in Nov following the monitor and will begin medical management with metoprolol and xarelto Assessment & Plan (08/31/2024 10:10 AM EDT): He has no recurrent arrhythmias such as SVT or atrial fibrillation in the past he had a very short run of VT but is managed with metoprolol and Xarelto effectively he has not had any bleeding complications. Assessment & Plan (03/19/2024 9:11 AM EST): His last monitor only showed a brief episode of SVT he is on blood thinners due to PAF but has not had any recurrent atrial fibrillation. He has been asymptomatic resting heart rate is low but is not getting any dizzy spells Assessment & Plan (12/06/2023 10:30 AM EDT): This patient has PAF and SVT hopefully the metoprolol and Xarelto should have a positive effect on this. I am starting both of these medications and then will check a 7-day MCOT monitor and see him in a few months Assessment & Plan (10/07/2023 7:37 AM EDT): He had 1 syncopal episode I am getting a monitor and an echo I will follow-up with him thereafter but bradycardia is probably less on the list here or asystole just based on his ECG alone Syncope and collapse 10/06/2023 Overview (10/06/2023): Pres to ED 09/12/23- had witnessed syncope- ER eval felt cause was orthostatis and pt was d/clary to home Assessment & Plan (03/19/2024 9:11 AM EST): No syncopal episodes at all Assessment & Plan (10/07/2023 7:37 AM EDT): More than likely this is related to dehydration Fatigue 07/08/2017 Hearing loss 07/08/2017 Joint pain 07/08/2017 Low back pain 07/08/2017 Muscle pain 07/08/2017 Nocturia 07/08/2017 Obstructive sleep apnea syndrome 07/08/2017 Assessment & Plan (12/06/2023 10:31 AM EDT): This goes along with his atrial fibrillation Assessment & Plan (10/07/2023 7:36 AM EDT): Treated at this time Generalized osteoarthritis 07/08/2017 Assessment & Plan (08/31/2024 10:11 AM EDT): He has a lot of arthritis and uses a cane to walk and I did caution him on falling Disorder involving thrombocytopenia 07/08/2017 Dizziness and giddiness 03/13/2017 Pure hypercholesterolemia 03/13/2017 Assessment & Plan (08/31/2024 10:10 AM EDT): LDL should be checked yearly and should be less than 100 and preferably less than 70 Assessment & Plan (03/19/2024 9:11 AM EST): LDL should be less than 100 Assessment & Plan (12/06/2023 10:31 AM EDT): I started Crestor and reorder to check on his lipids LDL should be less than 70 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 03/13/2017 IFG (impaired fasting glucose) 03/13/2017 Thrombocytopenia Encounters Date Type Department Care Team Description 10/11/2024 11:45 AM EDT Office Visit [address] [address] Celso Sr MD Mitchell, Ian, PT Chronic midline low back pain without sciatica (Primary Dx) 10/08/2024 11:15 AM EDT Office Visit [address] [address] Celso Sr MD Mitchell, Ian, PT Chronic midline low back pain without sciatica (Primary Dx) 10/04/2024 11:00 AM EDT Office Visit [address] [address] Celso Sr MD Mitchell, Ian, PT Chronic midline low back pain without sciatica (Primary Dx) 10/01/2024 11:15 AM EDT Office Visit [address] [address] Celso Sr MD Mitchell, Ian, PT Chronic midline low back pain without sciatica (Primary Dx) 09/27/2024 Plan of Care Documentation [address] [address] 09/26/2024 11:15 AM EDT Office Visit [address] [place] [address] Celso Sr MD Mitchell, Ian, PT Chronic midline low back pain without sciatica (Primary Dx) 08/31/2024 10:15 AM EDT Office Visit [facility] [address] Floor, [address] [place] [address] Abelino Meng DO Palpitations (Primary Dx); Pure hypercholesterolemia ; Generalized osteoarthritis 08/27/2024 Telephone [facility] [address] [place] [address] Celso Sr MD Labs 08/21/2024 10:18 AM EDT - 08/21/2024 11:59 PM EDT Hospital Encounter [facility] [address] [place] [address] Celso Sr MD Discharge Disposition: Home or Self Care 08/15/2024 Telephone [facility] [address] [place] [address] Celso Sr MD Low Back Pain 07/24/2024 11:30 AM EDT Office Visit [facility] [address] [place] [address] Celso Sr MD Spinal stenosis of lumbar region without neurogenic claudication (Primary Dx); Paroxysmal atrial fibrillation; Obstructive sleep apnea syndrome; Encounter for monitoring direct oral anticoagulant therapy 07/24/2024 Documentation [facility] [address] [place] [address] Celso Sr MD from Last 3 Months Immunizations Immunization Administration Dates Next Due COVID-19 (Pre-01/17) Pfizer Vaccine, mRNA, PF 05/23/2020,05/02/2020 [id number] FORMULATION 04/28/2009 Influenza High-Dose Quadriva lent Preservative Free IM 12/30/2021,01/20/2021,12/07/2019 Influenza High-Dose Trivalen t Preservative Free IM 01/20/2024,02/20/2019,02/11/2015,01/14,01/23/2013 Influenza Quadrivalent Adjuv anted Preservative Free IM 12/22/2022 Influenza Quadrivalent Prese rvative Free IM 02/27/2017 Influenza Split (Incl. Purif ied Surface Antigen) 12/16/2014 Influenza Trivalent Adjuvant ed Preservative free IM 12/23/2017 Influenza Trivalent Preserva tive Free IM 01/27/2016 Influenza Trivalent w/ Preservative IM 0 11/26/2020,11/26/2018,01/19/2018,02/21 Influenza, Unspecified Formulation 12/23/2017, Pneumococcal conjugate PCV13 08/15/2014 Pneumococcal polysaccharide PPSV23 11/09/2011, RSV Vaccine (monovalent, adjuvanted) 05/16/2023 Td (adult) 5 Lf Tetanus Toxo id, PF, Adsorbed 11/17/2017,09/26/2007 Zoster live 07/28/2012 Family History Medical History Relation Comments Thyroid cancer Daughter Heart disease Father Liver disease Nephew Relation Status Comments Daughter Father Nephew Alive Social History Tobacco Use Types Packs/Day Years Used Date Smoking Tobacco: Former Cigarettes 0.5 10 1 966 - 1976 Smokeless Tobacco: Never Tobacco Cessation:Counseling Given: Not Answered Alcohol Use Standard Drinks/Week Comments No 0 (1 standard drink = 0.6 oz pur e alcohol) Education Answer Date Recorded Are you interested in more education? Not on ascencion e 07/23/2022 Are you concerned about learning? Not on file 07/23/2022 No 07/23/2022 No 07/23/2022 Digital Access Answer Date Recorded No 08/23/2022 No 08/23/2022 Reliable internet access at home? Not on file 08/23/2022 Device with a working camera? Not on file Intimate Partner Violence Answer Date R ecorded Denied Basic Needs Not on file 06/05/2024 In the past 12 months have y ou been in a relationship with a person who hurts, threatens, or tries to control you? No 06/05/2024 Worried food would run out Not on file 06/05 In the past 12 months have y ou been in a relationship with a person who hurts, threatens, or tries to control you? No 06/05/2024 Sex and Gender Information Value Date Recorded Sex Assigned at Not on file Legal Sex Male 10:09 PM EDT Gender Identity Not on file Sexual Orientation Not on file Last Filed Vital Signs Vital Sign Reading Time Taken Comments Blood Pressure 142/76 08/31/2024 10:02 AM EDT Pulse 50 08/31/2024 10:02 AM EDT Temperature 36.5 C (97.7 F) 07/24/2024 11:40 AM EDT Respiratory Rate 24 07/24/2024 11:40 AM EDT Oxygen Saturation 96% 08/31/2024 10:02 AM EDT Inhaled Oxygen Concentration - - Weight 107 kg (236 lb) 08/31/2024 10:02 AM EDT Height 178.9 cm (5' 10.43 ) 08/31/2024 10:02 AM EDT Body Mass Index 33.45 08/31/2024 10:02 AM EDT Plan of Treatment Upcoming Encounters Date Type Department Care Team (Late st Contact Info) Description 10/15/2024 11:15 AM EDT Office Visit [address] [address] Celso Sr MD [address] [place] [address] [email or web address] Andrews Lazo, PT [address] [place] [address] 10/17/2024 11:15 AM EDT Office Visit [address] [address] Celso Sr MD [address] [place] [address] Andrews Lazo, PT [address] [place] [address] 10/22/2024 11:15 AM EDT Office Visit [address] [address] Celso Sr MD [address] [place], [place] [phone] Andrews Lazo, PT [address] [place] [address] 12/14/2024 11:00 AM EDT Office Visit [facility] [place] [address] [place] [address] Celso Sr MD [address] [place] [address] 04/09/2025 11:45 AM EST Office Visit [facility] [address] [facility] 3rd Floor, [address] [place] [id number] Abelino Meng DO [address] [facility] [address] [place] [address] [phone] [email or web address] Health Maintenance Due Date Last Done Comments ZOSTER VACCINES (2 of 3) 09/22/2012 07/28/2012 COVID-19 VACCINE ( season) 2023 12/30/2022, 12/18/2021, 07/10/2021, Additional history exists DEPRESSION SCREENING 06/05/2025 06/05/2024 CREATININE LEVEL 08/21/2025 08/21/2024, 06/2024, 03/30/2024, Additional history exists LIPID PANEL 10/01/2027 09/30/2022, 07/0 08/2022, 05/11/2022, Additional history exists Adult Td,Tdap Booster 11/18/2027 11/17/2017, 008 PNEUMOCOCCAL VACCINES (50+ years) Completed 08/15/2014, 11/09/2011, 11/23/2010 RSV VACCINE Completed 05/16/2023 SMOKING STATUS SCREENING (Once After 26 Yrs) Completed 08/31/2024 HEPATITIS A VACCINES Aged Out No long er eligible based on patient's age to complete this topic HIB VACCINES Aged Out No longer eligi ble based on patient's age to complete this topic MENINGOCOCCAL VACCINES (ACWY) Aged Out No longer eligible based on patient's age to complete this topic MENINGOCOCCAL VACCINES (B) Aged Out N o longer eligible based on patient's age to complete this topic Medical Devices Not on file Procedures Procedure Name Priority Date/Time Associated Diagnosis Comments BASIC METABOLIC PANEL Routine 08/21/2024 10:19 AM EDT Paroxysmal atrial fibrillation Encounter for monitoring direct oral anticoagulant therapy CBC AND DIFFERENTIAL Routine 08/21/2024 10:19 AM EDT Paroxysmal atrial fibrillation Encounter for monitoring direct oral anticoagulant therapy LIPID PANEL Routine 09/30/2022 10:42 AM EDT Pure hypercholesterolemia from Last 3 Months or Most Recently Relevant to Health Maintenance Results * (ABNORMAL) CBC and differential (08/21/2024 10:19 AM EDT) WBC 4.38 4.00 - 11.00 K/uL [facility] RBC 3.76(L) 4.50 - 5.90 M/uL [facility] HGB 12.5(L) 13.5 - 17.5 g/dL [facility] HCT 38.1(L) 41.0 - 53.0 % [facility] PLT 101(L) 150 - 450 K/uL [facility] MCV 101.3(H) 80.0 - 100.0 fL [facility] MCH 33.2(H) 27.0 - 31.0 pg [facility] MCHC 32.8 32.0 - 36.0 g/dL [facility] RDW 13.4 11.5 - 14.5 % [facility] MPV 12.2(H) 8.4 - 12.0 fL [facility] NRBC 0.00 0.00 /100 WBCs [facility] ABSOLUTE NRBC 0.00 0.00 K/uL [facility] DIFF METHOD Auto [facility] NEUTS 65.3 48.0 - 76.0 % [facility] LYMPHS 21.0 18.0 - 41.0 % [facility] MONOS 8.2 4.0 - 11.0 % [facility] EOS 4.8 0.0 - 5.0 % [facility] BASOS 0.5 0.0 - 1.5 % [facility] Granulocytes, immature (%) 0.2 0.0 - 0.9 % [facility] ABSOLUTE NEUTS 2.86 1.92 - 7.60 K/uL [facility] ABSOLUTE LYMPHS 0.92 0.72 - 4.10 K/uL [facility] ABSOLUTE MONOS 0.36 0.16 - 1.10 K/uL [facility] ABSOLUTE EOS 0.21 0.00 - 0.50 K/uL [facility] ABSOLUTE BASOS 0.02 0.00 - 0.15 K/uL [facility] Granulocytes, immature 0.01 0.00 - 0.09 K/uL [facility] Blood 08/21/2024 10:1 9 AM EDT 08/21/2024 10:21 AM EDT us Celso Sr MD LAB BLOOD ORDERABLES Final Re sult [facility] [address] [place], [place] [phone] * (ABNORMAL) Basic metabolic panel (08/21/2024 10:19 AM EDT) SODIUM 137 133 - 146 mmol/L [facility] CHLORIDE 102 96 - 108 mmol/L [facility] POTASSIUM 4.1 3.3 - 5.1 mmol/L [facility] CO2 30 21 - 35 mmol/L [facility] BUN 19 6 - 19 mg/dL [facility] CREATININE 1.00 0.5 - 1.5 mg/dL [facility] GLUCOSE 105(H) 70 - 99 mg/dL [facility] CALCIUM 9.1 8.4 - 10.3 mg/dL [facility] EGFR 76 >59 mL/min/1.7 3m2 [facility] Comment:Estimated glomerular filtration rate calculated using the CKD-EPI refit equation. ANION GAP 9(L) 10 - 20 mmol/L [facility] Blood 08/21/2024 10:1 9 AM EDT 08/21/2024 10:21 AM EDT Celso Sr MD LAB BLOOD ORDERABLES Final Re sult Performing Organization Address [facility] Co de Phone Number [address] [address] * (ABNORMAL) Lipid panel (09/30/2022 10:42 AM EDT) HDL 74 mg/dL [facility] Comment: Interpretation <40 mg/dL: Low HDL cholesterol (major risk factor for CHD) Greater than or equal to 60 mg/dL: High HDL cholesterol ( negative risk factor for CHD) HDL - cholesterol is affected by a number of factors, e.g. smoking, excerise, hormones, sex and age. CHOLESTEROL 210 0 - 240 mg/dL [facility] TRIGLYCERIDES 45 30 - 160 mg/dL [facility] LDL 127 50 - 129 mg/dL [facility] Comment: LDL levels in terms of risk for coronary heart disease: <100 mg/dL: Optimal 100-129 mg/dL: Near or above optimal 130-159 mg/dL: Borderline high 160-189 mg/dL: High >190 mg/dL: Very High CARDIAC RISK RATIO 2.8(L) 3.4 - 5.0 [facility] Blood 09/30/2022 10:4 2 AM EDT 09/30/2022 10:45 AM EDT us Celso Sr MD LAB BLOOD ORDERABLES Final Re sult Performing Organization Address [facility]/ZIP Co de Phone Number [address] [address] from Last 3 Months or Most Recently Relevant to Health Maintenance Insurance MEDICARE PART A & B Member Subscriber Plan / Payer (Ef fective 2011-Present) Name:Chris Smith Member ID:[id number] Relation to Subscriber:Self Name:Chris Smith Subscriber ID:[id number] Payer ID:[id number] Group ID:Not on file Type:Medicare Address: [employer] [address] [employer] MEDICARE SUPPLEMENT MEDICARE PART A & B MEDICARE SUPPLEMENT MEDICARE PART A & B [place] MEDICARE SUPPLEMENT MEDICARE PART A & B [place] MEDICARE SUPPLEMENT MEDICARE PART A & B [place] MEDICARE SUPPLEMENT MEDICARE PART A & B [place] MEDICARE SUPPLEMENT MEDICARE PART A & B [facility] EXTENSION MEDICARE SUPPLEMENT MEDICARE PART A & B [facility] EXTENSION MEDICARE SUPPLEMENT MEDICARE PART A & B [facility] EXT[employer]ION MEDICARE SUPPLEMENT Care Teams Lead Recoverer Relationship Specialty Start Date End Date Celso Sr MD [address] [place] [phone] [email or web address] PCP - General 02/24/17 Celso Sr MD [address] [place] [address] [email or web address] Historical LMR Provider 01/16/17 Celso Sr MD [address] [place] [address] [email or web address] Insurance Assigned Provider 07/01/24 Additional Source Comments The information contained in this document represents components of the legal health record. It is not the complete legal health record.[facility]
== END 2024-10-12 11:26 | disposition home or self-care (01) ==
LOC: HO.HAP 11:25
PROVIDERS: Visit Provider Internal Medicine
DX: Z46.1 Encounter for fitting and adjustment of hearing aid (principal)
CPT/HCPCS: 92593

== ENCOUNTER 2024-12-03 11:38 | Outpatient (REF) | payer SELFPAY ==
--- NOTE | 2024-12-03 12:47 | MHC.AU.HA3 ---
Hearing Instrument Follow-Up- Binaural Date of Visit: 12/03/24 Right Ear: Gm, Model, Color, Serial Number: [id number] [employer] Repair Warranty: 10/21/2023 [employer] Loss and Damage Warranty: 10/21/2023 [facility] Service Plan: 10/21/2023 Battery Size: 13 Document Imaging Manager/Slim Tube: #3 Medium Earmold/Dome/CShell/SlimTip:Phonak Integrated canal lock #[id number] Warranty 12/18/2024 Type of Wax Guard: CeruStop Dispensed By: [facility] Date of Fittin08/11/2020 Left Ear: Gm, Model, Color, Serial Number: [id number] [employer] Repair Warranty: 10/21/2023 [employer] Loss and Damage Warranty: 10/21/2023 [facility] Service Plan: 10/21/2023 Battery Size: 13 Document Imaging Manager/Slim Tube: #3 Medium [place]/Dome/CShell/SlimTip: Phonak Integrated canal lock 10/15/2024 Type of Wax Guard: CeruStop Dispensed By: [facility] Date of Fittin08/11/2020 Follow-Up Summary: Right aid d/o . Found c-shell missing wax guard, size stamper occluded. Attempted to vacuum out c-shell, no improvement. 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 Right c-shell under warranty, sending to [employer]. Spoke w/ Chris noting that this is an issue he keeps having. Chris reported that he does not always use the wax guards because he is worried about them falling out in his ears. Reports he was told it's okay to use them without wax guards. Advised that he has gotten new c-shells since having the issue with wax guards falling out and should have good wax guard retention now. Advised against using c-shells without wax guards due to wax building up inside c-shells and causing problems. Suggested appointment to practices wax guard use. Advised to make an appointment if he ever tries to change a wax guard and finds the gasket is not holding the new one rather than go on with no wax guard and risk having to purchase more c-shells. Right hearing aid is stored in repair drawer. Recommendations: Recommendations: Patient will be contacted when materials have arrived. Recommendations (Other): Can diamond picker or make appointment if he would like to practices wax guard use. Diagnosis Code(s): Primary Diagnosis: H90.3 Bilateral Sensorineural Hearing Loss Signature: Provider: Deirdre Bai, [facility] [place] [place]
--- OUTSIDE RECORDS SUMMARY | 2024-12-03 14:17 | XMS_ITS | Encounter Summary ---
Author Organization [facility] Address [address] [facility] [address] [place] [address] Phone Care Team Providers Care Software Implementation Specialist Name Role Phone Celso Sr MD Unavailable [phone] Celso Sr MD Primary Care Provider [phone] Celso Sr MD Unavailable [phone] Reason for Visit * Reason Comments Medication Refill Encounter Details Date Type Department Care Team (Late st Contact Info) Description [facility] [address] [facility] 3rd Floor, [address] [place] [address] Abelino Meng DO [address] [facility] [address] [place] [phone] [email or web address] Medication Refill Social History Tobacco Use Types Packs/Day Years Used Date Smoking Tobacco: Former Cigarettes 0.5 10 1 966 - 1975 Smokeless Tobacco: Never Alcohol Use Standard Drinks/Week Comments No 0 [...] on file Sexual Orientation Not on file documented as of this encounter Progress Notes * Kathi Simpson MA - 11/27/2024 10:38 AM EDT RX REVIEWED documented in this encounter Plan of Treatment Upcoming Encounters Date Type Department Care Team (Late st Contact Info) Description 12/04/2024 11:00 AM EDT Office Visit [address] [address] Celso Sr MD [address] [place] [id number] Andrews Lazo, PT [address] [place] [address] 12/10/2024 2:30 PM EDT Office Visit [address] [address] Celso Sr MD [address] [place] [address] Andrews Lazo, PT [address] [place] [address] 12/13/2024 11:00 AM EDT Office Visit [address] [address] Celso Sr MD [address] [place], [place] [phone] Mabel Gutierrez PTA [address] [place], [place] [phone] 12/14/2024 11:00 AM EDT Office Visit [facility] [address] [place], [place] [phone] Celso Sr MD [address] [place] [address] 12/17/2024 11:15 AM EDT Office Visit [address] [address] Celso Sr MD [address] [place], [place] [phone] Andrews Lazo, PT [address] [place], [place] [phone] 04/09/2025 11:45 AM EST Office Visit [facility] [address] [facility] 3rd Floor, [address] [place] [phone] Abelino Meng DO [address] [phone] documented as of this encounter Visit Diagnoses Not on filedocumented in this encounter Additional Health Concerns Assessment Noted Time PHQ-2 Depression Total Score: 0 06/06/19 25 9:54 AM EDT documented as of this encounter Care Teams Software Implementation Specialist Relationship Specialty Start Date End Date Celso Sr MD [address] [place] [address] [email or web address] PCP - General 02/24/17 Celso Sr MD [address] [place] [phone] Historical LMR Provider 01/16/17 Celso Sr MD [address] [place] [phone] [email or web address] Insurance Assigned Provider 07/01/24 documented as of this encounter Additional Source Comments The information contained in this document represents components of the legal health record. It is not the complete legal health record.[facility]
--- OUTSIDE RECORDS SUMMARY | 2024-12-03 14:17 | XMS_ITS | Encounter Summary ---
Author Organization [facility] Address [address] [facility] [address] [place] [address] Phone Care Team Providers Care Portrait Photographer Name Role Phone Celso Sr MD Unavailable [phone] Celso Sr MD Primary Care Provider [phone] Celso Sr MD Unavailable [phone] Reason for Visit * Reason Comments Medication Refill Encounter Details Date Type Department Care Team (Late st Contact Info) Description [facility] [address] [facility] 3rd Floor, [address] [place] [address] Abelino Meng DO [address] [facility] [address] [place] [address] [email or web address] Medication Refill Social History Tobacco Use Types [...] Notes * Kathi Simpson MA - 11/27/2024 3:47 PM EDT RX REVIEWED documented in this encounter Plan of Treatment Upcoming Encounters Date Type Department Care Team (Late st Contact Info) Description 12/04/2024 11:00 AM EDT Office Visit [address] [address] Celso Sr MD [address] [place] [address] Andrews Lazo, PT 30 [place] [address] 12/10/2024 2:30 PM EDT Office Visit [address] [address] Celso Sr MD [address] [place] [address] Andrews Lazo, PT 30 [place] [address] 12/13/2024 11:00 AM EDT Office Visit [address] [address] Celos Sr MD 40 [place], [place] [phone] Mabel Gutierrez PTA 10 [place], [place] 1848173 12/14/2024 11:00 AM EDT Office Visit [facility] 40 [place], [place] [phone] Celso Sr MD 40 [place] [address] 12/17/2024 11:15 AM EDT Office Visit [address] [address] Celso Sr MD 40 [place], [place] [phone] Andrews Lazo, PT 30 [place], [place] [phone] 04/09/2025 11:45 AM EST Office Visit [facility] [address] [facility] 3rd Floor, [address] [place] [address] [phone] Abelino Meng DO [address] [phone] documented as of this encounter Visit Diagnoses Not on filedocumented in this encounter Additional Health Concerns Assessment Noted Time PHQ-2 Depression Total Score: 0 06/06/19 25 9:54 AM EDT documented as of this encounter Care Teams Portrait Photographer Relationship Specialty Start Date End Date Celso Sr MD 40 [place] [address] [email or web address] PCP - General 02/24/17 Celso Sr MD [address] [place] [address] Historical LMR Provider 01/16/17 Celso Sr MD [address] [place] [address] [email or web address] Insurance Assigned Provider 07/01/24 documented as of this encounter Additional Source Comments The information contained in this document represents components of the legal health record. It is not the complete legal health record.[facility]
--- OUTSIDE RECORDS SUMMARY | 2024-12-03 14:17 | XMS_ITS | Encounter Summary ---
Author Organization [facility] Address [address] [place] [address] Phone Care Team Providers Care Shoeblack Name Role Phone Celso Sr MD Unavailable [phone] Celso Sr MD Primary Care Provider [phone] Celso Sr MD Unavailable [phone] Encounter Details Date Type Department Care Team (Late st Contact Info) Description 10/07/2023 Procedure Pass [facility] [place] [place] [address] Social History Tobacco Use Types Packs/Day Years [...] ecorded Denied Basic Needs Not on file 05/12/2023 In the past 12 months have y ou been in a relationship with a person who hurts, threatens, or tries to control you? No 05/12/2023 Worried food would run out Not on file 05/12 In the past 12 months have y ou been in a relationship with a person who hurts, threatens, or tries to control you? No 05/12/2023 Sex and Gender Information Value Date Recorded Sex Assigned at Not on file Legal Sex Male 10:09 PM EDT Gender Identity Not on file Sexual Orientation Not on file documented as of this encounter Plan of Treatment Upcoming Encounters Date Type Department Care Team (Late st Contact Info) Description 12/04/2024 11:00 AM EDT Office Visit [address] [address] Celso Sr MD 40 [place] [address] [email or web address] Andrews Lazo, PT 30 [place] [address] [email or web address] 12/10/2024 2:30 PM EDT Office Visit [address] [address] Celso Sr MD 40 [place] [address] [email or web address] Andrews Lazo, PT 30 [place] [address] [email or web address] 12/13/2024 11:00 AM EDT Office Visit [address] [address] Celso Sr MD 40 [place] [address] [email or web address] Mabel Gutierrez PTA 10 [place], [place] [phone] 12/14/2024 11:00 AM EDT Office Visit [facility] 40 [place] [address] Celso Sr MD 40 [place] [address] 12/17/2024 11:15 AM EDT Office Visit [facility] [address] [place] [address] [phone] Celso Sr MD 40 [place], [place] [phone] Andrews Lazo, PT 30 [place] [address] 04/09/2025 11:45 AM EST Office Visit [facility] [address] [place] [address] 3rd Floor, [address] [place] [address] Abelino Meng DO [address] [place] [address] documented as of this encounter Visit Diagnoses Not on filedocumented in this encounter Additional Health Concerns Assessment Noted Time PHQ-2 Depression Total Score: 2 05/12/19 24 10:39 AM EST documented as of this encounter Care Teams Shoeblack Relationship Specialty Start Date End Date Celso Sr MD 40 [place] [address] PCP - General 02/24/17 Celso Sr MD [address] [place] [address] Historical LMR Provider 01/16/17 Celso Sr MD [address] [place] [address] [email or web address] Insurance Assigned Provider 07/01/24 documented as of this encounter Additional Source Comments The information contained in this document represents components of the legal health record. It is not the complete legal health record.[facility]
--- OUTSIDE RECORDS SUMMARY | 2024-12-03 14:17 | XMS_ITS | Clinical Summary ---
Author Organization [facility] Address [address] [facility] [address] [place] [address] Phone Care Team Providers Care Hydrostatic Tester Name Role Phone Celso Sr MD Unavailable [phone] Celso Sr MD Primary Care Provider [phone] Celso Sr MD Unavailable [phone] Allergies Active Allergy Reactions Criticality Noted [...] Take 1,000 mcg by mouth every morning. 02/03/20 16 Active CIALIS 5 mg tablet Take 5 mg by mouth daily. 3 10/20/19 18 Active multivitamins-mi nerals-folic aavk-slyjhif-zgb ein (COMPLETE SENIOR) 0.4-300-250 mg-mcg-mcg Tab Take 1 tablet by mouth daily. Active omeprazole (PRILOSEC) 20 MG capsuleIndicatio ns:Gastroesophag eal reflux disease, unspecified whether esophagitis present Take 1 capsule (20 mg total) by mouth daily. 30 capsule 1 08/14/19 22 Active electrolytes/dex trose (PEDIALYTE ADVANCED CARE ORAL)Indications :packet powder form Take 1 packet by mouth every 14 (fourteen) days. Indications: packet powder form Active Medication-Free Text Take 1 Bottle by mouth once a week. Up to twice a week. [place] Protein 30 grams of protein Protein Plus Banana Honey [place] Butter Active polyethylene glycol (MIRALAX) 17 gram/dose powderIndication s:Irritable bowel syndrome with both constipation and diarrhea,Constip ation, unspecified constipation type Take 17 g by mouth 2 (two) times a day. Mix with 8oz of water or beverage 3060 g 4 11/21/19 24 Active ALPRAZolam (XANAX) 0.5 MG tablet 12/27/19 24 Active rosuvastatin (CRESTOR) 20 MG tablet Take 1 tablet (20 mg total) by mouth daily. 90 tablet 3 11/29/19 25 Active metoprolol succinate (TOPROL-XL) 25 MG 24 hr tablet Take 1 tablet (25 mg total) by mouth daily. 90 tablet 3 11/29/19 25 Active XARELTO 20 mg Tab Take 1 tablet (20 mg total) by mouth daily with dinner. 90 tablet 3 12/01/19 25 Active rivaroxaban (XARELTO) 20 mg Tab Take 1 tablet (20 mg total) by mouth daily with dinner. 90 tablet 3 12/06/19 24 025 Discontinued rosuvastatin (CRESTOR) 20 MG tablet Take 1 tablet (20 mg total) by mouth daily. 90 tablet 3 12/06/19 24 025 Discontinued metoprolol succinate (TOPROL-XL) 25 MG 24 hr tablet Take 1 tablet (25 mg total) by mouth daily. 90 tablet 3 12/06/19 24 025 Discontinued Active Problems Problem Noted Date Diagnosed Date [...] Encounters Date Type Department Care Team Description 11/30/2024 [facility] [address]rd Floor, [address] [place] [address] Abelino Meng, DO Medication Refill 11/27/2024 1:30 PM EDT Office Visit [facility] [address] [place] [address] Celso Sr MD Mitchell, Ian, PT Chronic midline low back pain without sciatica (Primary Dx) 11/27/2024 [facility] [address] 3rd Floor, [address] [place] [address] Abelino Meng, DO Medication Refill 11/25/2024 [facility] [address]rd Floor, [address] [place] [address] Abelino Meng, Medication Refill 11/20/2024 11:45 AM EDT Office Visit [address] [address] Celso Sr MD Mitchell, Ian, PT Chronic midline low back pain without sciatica (Primary Dx) 11/14/2024 2:30 PM EDT Office Visit [address] [address] Celso Sr MD Mitchell, Ian, PT Chronic midline low back pain without sciatica (Primary Dx) 11/06/2024 10:15 AM EDT Office Visit [address] [address] Celso Sr MD Mitchell, Ian, PT Chronic midline low back pain without sciatica (Primary Dx) 10/30/2024 10:15 AM EDT Office Visit [address] [address] Celso Sr MD Mitchell, Ian, PT Chronic midline low back pain without sciatica (Primary Dx) 10/22/2024 11:15 AM EDT Office Visit [address] [address] Celso Sr MD Mitchell, Ian, PT Chronic midline low back pain without sciatica (Primary Dx) 10/17/2024 11:15 AM EDT Office Visit [address] [address] Celso Sr MD Mitchell, Ian, PT Chronic midline low back pain without sciatica (Primary Dx) 10/15/2024 11:15 AM EDT Office Visit [address] [address] Celso Sr MD Mitchell, Ian, PT Chronic midline low back pain without sciatica (Primary Dx) 10/11/2024 11:45 AM EDT Office Visit [address] [address] Celso Sr MD Mitchell, Ian, PT Chronic midline low back pain without sciatica (Primary Dx) 10/08/2024 11:15 AM EDT Office Visit [address] [address] Celso Sr MD Mitchell, Ian, PT Chronic midline low back pain without sciatica (Primary Dx) 10/04/2024 11:00 AM EDT Office Visit [address] [address] Celso Sr MD Mitchell, Ian, PT Chronic midline low back pain without sciatica (Primary Dx) 10/01/2024 11:15 AM EDT Office Visit [address] [address] Celso Sr MD Mitchell, Ian, PT Chronic midline low back pain without sciatica (Primary Dx) 09/27/2024 Plan of Care Documentation [address] [address] 09/26/2024 11:15 AM EDT Office Visit [address] [address] Celso Sr MD Mitchell, Ian, PT Chronic midline low back pain without sciatica (Primary Dx) from Last 3 Months Immunizations Immunization Administration Dates Next Due COVID-19 (Pre-01/17) Pfizer Vaccine, mRNA, PF 05/23/2020,05/02/2020 [id number] FORMULATION 04/28/2009 INFLUENZA, SPLIT VIRUS, TRIVALENT PF 01/27/2016 INFLUENZA, SPLIT VIRUS, TRIV ALENT W/ PRESERVATIVE IM 11/26/2020,11/26/2018,01/19/2018,02/21 Influenza High-Dose Quadriva lent Preservative Free IM 12/30/2021,01/20/2021,12/07/2019 Influenza High-Dose Trivalen t Preservative Free IM 01/20/2024,02/20/2019,02/11/2015,01/14,01/23/2013 Influenza Quadrivalent Adjuv anted Preservative Free IM 12/22/2022 Influenza Quadrivalent Prese rvative Free IM 02/27/2017 Influenza Split (Incl. Purif ied Surface Antigen) 12/16/2014 Influenza Trivalent Adjuvant ed Preservative free IM 12/23/2017 Influenza, Unspecified Formulation 12/23/2017, Pneumococcal conjugate PCV13 [...] Tobacco: Former Cigarettes 0.5 10 1 966 1975 Smokeless Tobacco: Never Tobacco Cessation:Counseling Given: Not [...] Description 12/04/2024 11:00 AM EDT Office Visit [address] [address] Celso Sr MD [address] [place] [address] [phone] [email or web address] Andrews Lazo, PT 30 [place] [address] [email or web address] 12/10/2024 2:30 PM EDT Office Visit [address] [address] Celso Sr MD [address] [place] [address] [phone] [email or web address] Andrews Lazo, PT 30 [place] [address] 12/13/2024 11:00 AM EDT Office Visit [address] [address] Celso Sr MD [address] [place] [address] [phone] [email or web address] Mabel Gutierrez PTA 10 [place], [place] [phone] 12/14/2024 11:00 AM EDT Office Visit [facility] 40 [place], [place] [phone] Celso Sr MD 40 [place], [place] [phone] 12/17/2024 11:15 AM EDT Office Visit [facility] [address] [place] [address] Celso Sr MD 40 [place], [place] [phone] Andrews Lazo, PT 30 [place], [place] [phone] 04/09/2025 11:45 AM EST Office Visit [facility] [address] [place] [address] 3rd Floor, [address] [place] [address] [phone] Abelino Meng, [address] [phone] [email or web address] Health Maintenance Due Date Last Done Comments ZOSTER VACCINES (2 of 3) 09/22/2012 07/28/2012 INFLUENZA VACCINE (#1) 2024 , 12/22/2022, 12/22/2022, Additional history exists COVID-19 VACCINE ( season) 2024 12/30/2022, 12/18/2021, 07/10/2021, Additional history exists DEPRESSION SCREENING 06/05/2025 06/05/2024 CREATININE LEVEL 08/21/2025 08/21/2024, 06/2024, 03/30/2024, Additional history exists Adult Td,Tdap Booster 11/18/2027 11/17/2017, 008 PNEUMOCOCCAL VACCINES (50+ years) Completed 08/15/2014, 11/09/2011, 11/23/2010 RSV VACCINE Completed 05/16/2023 HEPATITIS A VACCINES Aged Out No long [...] Encounter for monitoring direct oral anticoagulant therapy from Last 3 Months or Most Recently Relevant to Health Maintenance Results * (ABNORMAL) Basic metabolic panel (08/21/2024 10:19 AM EDT) SODIUM 137 133 - 146 mmol/L [facility] CHLORIDE 102 96 - 108 mmol/L [facility] POTASSIUM 4.1 3.3 - 5.1 mmol/L [facility] CO2 30 21 - 35 mmol/L [facility] BUN 19 6 - 19 mg/dL [facility] CREATININE 1.00 0.5 - 1.5 mg/dL [facility] GLUCOSE 105(H) 70 - 99 mg/dL [facility] CALCIUM 9.1 8.4 - 10.3 mg/dL [facility] EGFR 76 >59 mL/min/1.7 3m2 [facility] Comment:Estimated glomerular filtration rate calculated using the CKD-EPI refit equation. ANION GAP 9(L) 10 - 20 mmol/L [facility] Blood 08/21/2024 10:1 9 AM EDT 08/21/2024 10:21 AM EDT us Celso Sr MD LAB BLOOD ORDERABLES Final Re sult [facility] 30 [place] [address] from Last 3 Months or Most Recently Relevant to Health Maintenance Insurance MEDICARE PART A & B [employer] MEDICARE SUPPLEMENT MEDICARE PART A & B [employer] MEDICARE SUPPLEMENT MEDICARE PART A & B [employer] MEDICARE SUPPLEMENT MEDICARE PART A & B [employer] MEDICARE SUPPLEMENT MEDICARE PART A & B [facility] MEDICARE SUPPLEMENT MEDICARE PART A & B [facility] [employer] MEDICARE SUPPLEMENT MEDICARE PART A & B [facility] [place] [id number] MEDICARE PART A & [place] [id number] MEDICARE PART A & B [facility] [place] [phone] Care Teams Hydrostatic Tester Relationship Specialty Start Date End Date Celso Sr MD 40 [place] [address] [email or web address] PCP - General 02/24/17 Celso Sr MD 40 [place] [address] Historical LMR Provider 01/16/17 Celso Sr MD 40 [place] [address] [email or web address] Insurance Assigned Provider 07/01/24 Additional Source Comments The information contained in this document represents components of the legal health record. It is not the complete legal health record.[facility]
--- OUTSIDE RECORDS SUMMARY | 2024-12-03 14:17 | XMS_ITS | Encounter Summary ---
Author Organization [facility] Address [address] [facility] [address] [place] [address] Phone Care Team Providers Care Mining Captain Name Role Phone Celso Sr MD Unavailable [phone] Cleso Sr MD Primary Care Provider [phone] Celso Sr MD Unavailable [phone] Reason for Visit * Reason Comments Medication Refill Encounter Details Date Type Department Care Team (Late st Contact Info) Description 11/30/2024 [facility] [address] [facility] 3rd Floor, [address] [place] [address] Abelino Meng DO 22 [facility] [address] [place] [address] [email or web address] Medication Refill Social History Tobacco Use Types [...] as of this encounter Progress Notes * Ananya Fernández MA - 11/30/2024 2:11 PM EDT reviewed documented in this encounter Plan of Treatment Upcoming Encounters Date Type Department Care Team (Late st Contact Info) Description 12/04/2024 11:00 AM EDT Office Visit [address] [address] Celso Sr MD [address] [place] [address] Andrews Lazo, PT 30 [place] [address] 12/10/2024 2:30 PM EDT Office Visit [address] [address] Celso Sr MD [address] [place] [address] Andrews Lazo, PT 30 [place] [address] 12/13/2024 11:00 AM EDT Office Visit [address] [address] Celso Sr MD 40 [place], [place] [phone] Mabel Gutierrez PTA 10 [place], [place] [phone] 12/14/2024 11:00 AM EDT Office Visit [facility] 40 [place], [place] [phone] Celso Sr MD 40 [place], [place] [phone] 12/17/2024 11:15 AM EDT Office Visit [address] [address] Celso Sr MD 40 [place], [place] [phone] Andrews Lazo, PT 30 [place], [place] [phone] 04/09/2025 11:45 AM EST Office Visit [facility] [address] [place] [address] 3rd Floor, [address] [place] [address] [phone] Abelino Meng DO [address] [phone] documented as of this encounter Visit Diagnoses Not on filedocumented in this encounter Additional Health Concerns Assessment Noted Time PHQ-2 Depression Total Score: 0 06/06/19 25 9:54 AM EDT documented as of this encounter Care Teams Mining Captain Relationship Specialty Start Date End Date Celso Sr MD [address] [place] [address] [email or web address] PCP - General 02/24/17 Celso Sr MD [address] [place] [address] Historical LMR Provider 01/16/17 Celso Sr MD [address] [place] [address] [email or web address] Insurance Assigned Provider 07/01/24 documented as of this encounter Additional Source Comments The information contained in this document represents components of the legal health record. It is not the complete legal health record.[facility]
--- OUTSIDE RECORDS SUMMARY | 2024-12-03 14:17 | XMS_ITS | Patient Health Record ---
Author Organization [facility] Address [address] [place] [address] Care Team Providers Care Haulage Boss Name Role Phone Celso Sr MD Primary Care Provider Peter Correa Unavailable [phone] Allergies Allergen (clinical drug ingredient) Drug/Non Drug Allergy documented on EMR Reaction Allergy Type Onset Date Status nickel brianda (uncoded) Unknown Allergy Act nrey meperidine Demerol (uncoded) Unknown Allergy A ctive [...] Omeprazole 20 mg TAKE 1 CAPSULE BY [facility] EVERY MORNING for 30 Active Ciclopirox [...] W/U Status Risk Notes Problem Esophageal reflux (118523765) Esophageal reflux (K21.9) Active confirmed Problem Gastro-esophageal reflux disease without esophagitis (477959280) Gastro-esophageal reflux disease without esophagitis (K21.9) Active confirmed Problem Screening for malignant neoplasm of colon (981351047) Encounter for screening for malignant neoplasm of colon (Z12.11) Active confirmed Problem Duodenitis (51951555) Duodenitis (K29.80) Active confirmed Problem Gastric polyp (15652694) Gastric polyp (K31.7) Active confirmed Problem 18677575 Constipation, unspecified constipation type (K59.00) Active confirmed Problem Gastroesophageal reflux disease (696358705) GERD (gastroesophageal reflux disease) (K21.9) Active confirmed Problem 91493295 Diarrhea, unspecified type (R19.7) Active confirmed Problem 14965489 Irritable bowel syndrome, unspecified type (K58.9) Active confirmed Problem 96423742 Abdominal discomfort (R10.9) Active confirmed Problem Diverticulosis of colon (821904491) Diverticulosis of colon (K57.30) Active confirmed Plan [...] Date MEDICARE OF [place] [address] [facility] [address] [phone] [id number] KRISTA SANTOS Self - patient is the insured [employer] [address] [place] [address] [id number] KRISTA SANTOS Self - patient is the insured Medical (General) History Medical History History ICD Code Depression BPH Denies UT,DM,CVA,renal disease Interstitial lung disease--sees Dr. Sutherland ov Neg. colonoscopy in 2001 wit h me and a negative colonoscopy in 07/[address] Azar at [facility] IBS with some constipation Negative colonoscopy [...]
== END 2024-12-03 11:39 | disposition home or self-care (01) ==
LOC: HO.HAP 11:38
DX: Z13.89 Encounter for screening for other disorder (principal)

== ENCOUNTER 2024-12-13 12:09 | Outpatient (REF) | payer SELFPAY ==
--- OUTSIDE RECORDS SUMMARY | 2024-12-10 14:30 | XMS_ITS | Encounter Summary ---
Author Organization [facility] Address [address] [facility] [address] [place] [address] Phone Care Team Providers Care Marketing Analyst Name Role Phone Celso Sr MD Unavailable [phone] Celso Sr MD Primary Care Provider [phone] Celso Sr MD Unavailable [phone] Reason for Visit * Physical Therapy (Within 2 weeks) - Authorized Specialty Diagnoses / Procedures Referred By Cary gomez Referred To Contact Physical Therapy Diagnoses Spinal stenosis of lumbar region Celso Sr MD [address] [place], [place] Phone: tel: fax: mailto: [address] [address] Phone: tel: Referral ID Status Reason Start Date Expiration Date V isits Requested Visits Authorized [id number] Authorized 08/16/2024 08/15/2025 99 99 Encounter Details Date Type Department Care Team (Latest Contact Info) Description 12/10/2024 2:30 PM EDT Office Visit [facility] [address] [place] [address] Celso Sr MD [address] [place], [place] Andrews Lazo, PT [address] [place] [address] [email or web address] Chronic midline low back pain without sciatica (Primary Dx) Social History Tobacco Use Types Packs/Day Years Used Date Smoking Tobacco: Former Cigarettes 0.5 10 1 6 1975 Smokeless Tobacco: Never Alcohol Use Standard [...] as of this encounter Progress Notes * Andrews Lazo, PT - 12/10/2024 2:30 PM EDT Physical Therapy Treatment Note Patient Name: Chris Smith Date of : 1945 This patient has attended 15 visits since the onset Physical Therapy. Referring MD: Celso Sr MD [address] [place] [address] Diagnosis: Chronic midline low back pain without sciatica [M54.50, G89.29] Precautions/Safety: No precautions Subjective comments: Back is doing alright today, moderate activity this weekend without severe pain. Pain comments pre-treatment: Moderate pain today 4-5 Objective Measures: No change from eval Interventions: Procedural Interventions Parameters THERAPEUTIC EXERCISE Seated QL stretch 3x30 R/L Seated Pball rollouts 10x10 Supine LTR w/Pball 20x Supine DKTC w/Pball 20x Supine clamshells Blk TB 2x15 Standing Lumbar extensions x10 THERAPEUTIC ACTIVITIES/ SELF CARE NEUROMUSCULAR RE-ED MANUAL THERAPY LAT w/belt Lateral Hip mobs Gr II-III w/belt Hip flexion, ER, piriformis stretch MODALITIES Home Exercise Program: Access Code: [email or web address] URL: [email or web address] Date: 10/22/2024 Prepared by: Andrews Lazo Exercises - Supine Lower Trunk Rotation - 2-3 x daily - 7 x weekly - 10 reps - 5 hold - Seated Quadratus Lumborum Stretch in Chair - 2-3 x daily - 7 x weekly - 5 reps - 10 hold - Hooklying Single Knee to Chest Stretch - 2-3 x daily - 7 x weekly - 10 reps - 5 hold - Hooklying Clamshell with Resistance - 1 x daily - 7 x weekly - 2 sets - 10 reps - Supine Bridge - 1 x daily - 7 x weekly - 2 sets - 10 reps - Standing Romberg to 1/2 Tandem Stance - 1 x daily - 7 x weekly - 4 reps - 30- 60 hold - Pallof Press With Lateral Step - 1 x daily - 7 x weekly - 2 sets - 10 reps Assessment: Patient gets wave of nausea during session today when transitioning between seated/supine positioning. Reduced exercise intensity to help manage symptoms while also providing water with good effect. Plan: Progress lumbar mobility and core strengthening as tolerable. Andrews Lazo, [place] [id number] documented in this encounter Plan of Treatment Upcoming Encounters Date Type Department Care Team (Late st Contact Info) Description 12/14/2024 11:00 AM EDT Office Visit [facility] Internal Medicine [address] [place] [address] Celso Sr MD [address] [place] [address] 12/17/2024 11:15 AM EDT Office Visit [facility] [address] [place] [address] [phone] Celso Sr MD [address] [place] [address] [phone] Andrews Lazo, PT [address] [place] [address] 04/09/2025 11:45 AM EST Office Visit [facility] [address] [place] [address] [address]rd Floor, [address] [place], [place] [phone] Abelino Meng, DO [address] [phone] documented as of this encounter Visit Diagnoses Diagnosis Chronic midline low back pain without sciatica- Primary Need for prophylactic vaccination and inoculation against influenza- Primary documented in this encounter Additional Health Concerns Assessment Noted Time PHQ-2 Depression Total Score: 0 06/06/19 9:54 AM EDT documented as of this encounter Care Teams Marketing Analyst Relationship Specialty Start Date End Date Celso Sr MD [address] [place] [address] PCP - General 02/24/17 Celso Sr MD [address] [place] [address] Historical LMR Provider 01/16/17 Celso Sr MD [address] [place] [address] Insurance Assigned Provider 07/01/24 documented as of this encounter Additional Source Comments The information contained in this document represents components of the legal health record. It is not the complete legal health record.[facility]
--- OUTSIDE RECORDS SUMMARY | 2024-12-13 11:00 | XMS_ITS | Encounter Summary ---
Author Organization [facility] Address [address] [facility] [address] [place] [address] Phone Care Team Providers Care Rubber Moulding Machine Operator Name Role Phone Celso Sr MD Unavailable [phone] Celso Sr MD Primary Care Provider [phone] Celso Sr MD Unavailable [phone] Reason for Visit * Physical Therapy (Within 2 weeks) - Authorized Specialty Diagnoses / Procedures Referred By Cary gomez Referred To Contact Physical Therapy Diagnoses Spinal stenosis of lumbar region Celso Sr MD [address] [place], [place] Phone: tel: fax: mailto: [address] [address] Phone: tel: Referral ID Status Reason Start Date Expiration Date V isits Requested Visits Authorized [id number] Authorized 08/16/2024 08/15/2025 99 99 Encounter Details Date Type Department Care Team (Latest Contact Info) Description 12/13/2024 11:00 AM EDT Office Visit [facility] Rehabilitation Services [address] [place] [address] Celso Sr MD [address] [place], [place] Andrews Lazo, PT [address] [place] [address] [email or web address] Chronic midline low back pain without sciatica (Primary Dx) Social History Tobacco Use Types Packs/Day Years Used Date Smoking Tobacco: Former Cigarettes 0.5 10 1 966 1975 Smokeless Tobacco: Never Alcohol Use Standard [...] Progress Notes * Andrews Lazo, PT - 12/13/2024 11:00 AM EDT Physical Therapy Treatment Note Patient Name: Chris Smith Date of : 1945 This patient has attended 16 visits since the onset Physical Therapy. Referring MD: Celso Sr MD [address] [place] [address] Diagnosis: Chronic midline low back pain without sciatica [M54.50, G89.29] Precautions/Safety: No precautions Subjective comments: Back is doing alright today, was able to rest yesterday so his pain is better. Pain comments pre-treatment: Moderate pain today 07/05 Objective Measures: No change from eval Interventions: Procedural Interventions Parameters THERAPEUTIC EXERCISE Seated QL stretch 3x30 R/L Seated Pball rollouts 10x10 Supine LTR w/Pball 20x Supine DKTC w/Pball 20x Supine clamshells Blk TB 2x15 Standing Lumbar extensions x10 Pallof Step Outs Blue TB 2x10 THERAPEUTIC ACTIVITIES/ SELF CARE NEUROMUSCULAR RE-ED MANUAL THERAPY LAT w/belt Lateral Hip mobs Gr II-III w/belt Hip flexion, ER, piriformis stretch MODALITIES Home Exercise Program: Access Code: [email or web address] URL: [email or web address] Date: 10/22/2024 Prepared by: Andrews Lazo Exercises [...] - 2 sets - 10 reps Assessment: Tolerating all interventions without worsening pain today, improved functional mobility at end of session. Plan: Progress lumbar mobility and core strengthening as tolerable. Andrews Lazo, [place] [id number] documented in this encounter Plan of Treatment Upcoming Encounters Date Type Department Care Team (Late st Contact Info) Description 12/14/2024 11:00 AM EDT Office Visit [facility] Internal Medicine [address] [place] [address] Celso Sr MD [address] [place] [address] 12/17/2024 11:15 AM EDT Office Visit [facility] [address] [place] [address] Celso Sr MD [address] [place] [address] [phone] Andrews Lazo, PT [address] [place] [address] 04/09/2025 11:45 AM EST Office Visit [facility] [address] [place] [address] [address]rd Floor, [address] [place], [place] [phone] Abelino Meng, [address] [phone] documented as of this encounter Visit Diagnoses Diagnosis Chronic midline low back pain without sciatica- Primary Need for prophylactic vaccination and inoculation against influenza- Primary documented in this encounter Additional Health Concerns Assessment Noted Time PHQ-2 Depression Total Score: 0 06/06/19 9:54 AM EDT documented as of this encounter Care Teams Rubber Moulding Machine Operator Relationship Specialty Start Date End Date Celso Sr MD [address] [place] [address] PCP - General 02/24/17 Celso Sr MD [address] [place] [address] Historical LMR Provider 01/16/17 Celso Sr MD [address] [place] [phone] Insurance Assigned Provider 07/01/24 documented as of this encounter Additional Source Comments The information contained in this document represents components of the legal health record. It is not the complete legal health record.[facility]
--- OUTSIDE RECORDS SUMMARY | 2024-12-13 14:24 | XMS_ITS | Clinical Summary ---
Author Organization [facility] Address [address] [facility] [address] [place] [address] Phone Care Team Providers Care Local Government Legislator Name Role Phone Celso Sr MD Unavailable [phone] Celso Sr MD Primary Care Provider [phone] Celso Sr MD Unavailable [phone] Allergies Active Allergy Reactions Criticality Noted [...] daily. 3 10/20/19 18 Active multivitamins-mi nerals-folic mwhk-omvfkwo-jcj ein (COMPLETE SENIOR) 0.4-300-250 mg-mcg-mcg Tab Take [...] grams of protein Protein Plus Banana Honey Montgomery Butter Active polyethylene glycol (MIRALAX) 17 gram/dose [...] Encounters Date Type Department Care Team Description 12/13/2024 11:00 AM EDT Office Visit [address] [address] Celso Sr MD Mitchell, Ian, PT Chronic midline low back pain without sciatica (Primary Dx) 12/10/2024 2:30 PM EDT Office Visit [address] [address] Celso Sr MD Mitchell, Ian, PT Chronic midline low back pain without sciatica (Primary Dx) 12/04/2024 11:00 AM EDT Office Visit [address] [address] Celso Sr MD Mitchell, Ian, PT Chronic midline low back pain without sciatica (Primary Dx) 11/30/2024 Refill [facility] [address], [address] [place] [address] Abelino Meng A, DO Medication Refill 11/27/2024 1:30 PM EDT Office Visit [address] [address] Celso Sr MD Mitchell, Ian, PT Chronic midline low back pain without sciatica (Primary Dx) 11/27/2024 Refill [facility] [address], [address] [place] [address] Abelino Meng A, DO Medication Refill 11/25/2024 Refill [facility] [address], [address] [place] [address] Abelino Meng A, DO Medication Refill 11/20/2024 11:45 AM EDT Office Visit [address] [address] Celso Sr MD Mitchell, Ian, PT Chronic midline low back pain without sciatica (Primary Dx) 11/14/2024 2:30 PM EDT Office Visit [address] [address] Celso Sr MD Mitchell, Ian, PT Chronic midline low back pain without sciatica (Primary Dx) 11/06/2024 10:15 AM EDT Office Visit [address] [address] Celso Sr MD Mitchell, Ian, PT Chronic midline low back pain without sciatica (Primary Dx) 10/30/2024 10:15 AM EDT Office Visit [address] [address] Celso Sr MD Mitchell, Ian, PT Chronic midline low back pain without sciatica (Primary Dx) 10/22/2024 11:15 AM EDT Office Visit [address] [address] Celso Sr MD Mitchell, Ian, PT Chronic midline low back pain without sciatica (Primary Dx) 10/17/2024 11:15 AM EDT Office Visit [address] [address] Celso Sr MD Mitchell, Ian, PT Chronic midline low back pain without sciatica (Primary Dx) 10/15/2024 11:15 AM EDT Office Visit [address] [address] Celso Sr MD Mitchell, Ian, PT Chronic midline low back pain without sciatica (Primary Dx) 10/11/2024 11:45 AM EDT Office Visit [address] [address] Celso Sr MD Mitchell, Ian, PT Chronic midline low back pain without sciatica (Primary Dx) 10/08/2024 11:15 AM EDT Office Visit [address] [address] Celso Sr MD Mitchell, Ian, PT Chronic midline low back pain without sciatica (Primary Dx) 10/04/2024 11:00 AM EDT Office Visit [address] [address] Celso Sr MD Mitchell, Ian, PT Chronic midline low back pain without sciatica (Primary Dx) 10/01/2024 11:15 AM EDT Office Visit [address] [address] Celso Sr MD Mitchell, Ian, PT Chronic midline low back pain without sciatica (Primary Dx) 09/27/2024 Plan of Care Documentation [address] [address] 09/26/2024 11:15 AM EDT Office Visit [address] [address] Celso Sr MD Mitchell, Ian, PT Chronic midline low back pain without sciatica (Primary Dx) from Last 3 Months Immunizations Immunization Administration Dates Next Due COVID-19 (Pre-01/17) Pfizer Vaccine, mRNA, PF 05/23/2020,05/02/2020 [id number] FORMULATION 04/28/2009 INFLUENZA, SPLIT VIRUS, TRIVALENT PF [...] 1 966 - 1975 Smokeless Tobacco: Never Tobacco Cessation:Counseling Given: [...] Description 12/14/2024 11:00 AM EDT Office Visit [facility] [address] [place] [address] Celso Sr MD [address] [place] [address] [email or web address] 12/17/2024 11:15 AM EDT Office Visit [facility] Services [address] [place] [address] Celso Sr MD [address] [place] [address] [email or web address] Andrews Lazo, PT [address] [place] [address] 04/09/2025 11:45 AM EST Office Visit [facility] 22 [facility] 3rd Floor, [address] [place] [address] Abelino Meng, 22 [facility] [address] [place] [address] [email or web address] Health Maintenance Due Date Last Done Comments [...] EDT) SODIUM 137 133 - 146 mmol/L [facility] CHLORIDE 102 96 - 108 mmol/L [facility] POTASSIUM 4.1 3.3 - 5.1 mmol/L [facility] CO2 30 21 - 35 mmol/L [facility] BUN 19 6 - 19 mg/dL [facility] CREATININE 1.00 0.5 - 1.5 mg/dL [facility] GLUCOSE 105(H) 70 - 99 mg/dL [facility] CALCIUM 9.1 8.4 - 10.3 mg/dL [facility] EGFR 76 >59 mL/min/1.7 3m2 [facility] Comment:Estimated glomerular filtration rate calculated using the CKD-EPI refit equation. ANION GAP 9(L) 10 - 20 mmol/L [facility] Blood 08/21/2024 10:1 9 AM EDT 08/21/2024 10:21 AM EDT us Celso rS MD LAB BLOOD ORDERABLES Final Re sult [facility] [address] [place], [place] [phone] from Last 3 Months or Most Recently Relevant to Health Maintenance Insurance [place] PART [place] [id number] [facility] MEDICARE SUPPLEMENT MEDICARE PART A & B [facility] MEDICARE SUPPLEMENT MEDICARE PART A & [facility] MEDICARE SUPPLEMENT MEDICARE PART A & B [facility] MEDICARE SUPPLEMENT MEDICARE PART A & B Member Subscriber Plan / Payer ( fective 2011-Present) Name:Chris Smith Member ID:[id number] Relation to Subscriber:Self Name:Chris Smith Subscriber ID:[id number] Payer ID:[id number] Group ID:Not on file Type:Medicare Address: [employer] [address] MEDICARE SUPPLEMENT MEDICARE PART A & B MEDICARE SUPPLEMENT MEDICARE PART A & B [employer] MEDICARE SUPPLEMENT MEDICARE PART A & B [employer] MEDICARE SUPPLEMENT MEDICARE PART A & B [facility] MEDICARE SUPPLEMENT Care Teams Local Government Legislator Relationship Specialty Start Date End Date Celso Sr MD [address] [place] [address] [email or web address] PCP - General 02/24/17 Celso Sr MD [address] [place] [address] Historical LMR Provider 01/16/17 Celso Sr MD [address] [place] [address] [email or web address] Insurance Assigned Provider 07/01/24 Additional Source Comments The information contained in this document represents components of the legal health record. It is not the complete legal health record.[facility]
--- OUTSIDE RECORDS SUMMARY | 2024-12-13 14:24 | XMS_ITS | Encounter Summary ---
Author Organization [facility] Address [address] [place] [address] Phone Care Team Providers Care Dimensional Integration Engineer Name Role Phone Celso Sr MD Unavailable [phone] Celso Sr MD Primary Care Provider [phone] Celso Sr MD Unavailable [phone] Encounter Details Date Type Department Care Team (Late st Contact Info) Description 10/07/2023 Procedure Pass Echo [facility] [address] [place] [address] Social History Tobacco Use Types [...] Description 12/14/2024 11:00 AM EDT Office Visit [facility] Internal Medicine [address] [place] [address] Celso Sr MD [address] [place] [address] 12/17/2024 11:15 AM EDT Office Visit [facility] Rehabilitation Services [address] [place] [address] Celso Sr MD [address] [place], [place] [phone] Andrews Lazo, PT [address] [place] [address] 04/09/2025 11:45 AM EST Office Visit [facility] [address] [place] [address] 3rd Floor, [address] [place] [address] Abelino Meng, 22 [facility] [address] [place] [address] [phone] documented as of this encounter Visit Diagnoses Not on filedocumented in this encounter Additional Health Concerns Assessment Noted Time PHQ-2 Depression Total Score: 2 05/12/19 24 10:39 AM EST documented as of this encounter Care Teams Dimensional Integration Engineer Relationship Specialty Start Date End Date Celso Sr MD [address] [place] [address] PCP - General 02/24/17 Celso Sr MD [address] [place] [address] Historical LMR Provider 01/16/17 Celso Sr MD [address] [place] [id number] Insurance Assigned Provider 07/01/24 documented as of this encounter Additional Source Comments The information contained in this document represents components of the legal health record. It is not the complete legal health record.[facility]
== END 2024-12-13 12:10 | disposition home or self-care (01) ==
LOC: HO.HAP 12:09
PROVIDERS: Visit Provider Internal Medicine
DX: Z46.1 Encounter for fitting and adjustment of hearing aid (principal); H90.3 Sensorineural hearing loss, bilateral
CPT/HCPCS: 92593